=== PATIENT | female | born 1995 | race Caucasian/White ===

== ENCOUNTER 2017-07-23 17:09 | Emergency (ER) | payer OTHER ==
[2017-07-23 17:14] VITALS: RESP 18
--- NOTE | 2017-07-23 17:20 | ED ---
Nausea/Vomiting/Diarrhea HPI - General Chief complaint: Nausea/Vomiting/Diarrhea Stated complaint: Abd Pain/Nausea Time Seen by Provider: 07/23/17 17:19 Source: patient, RN notes reviewed Mode of arrival: ambulatory Limitations: no limitations - History of Present Illness Initial comments: This a pleasant 22-year-old female presents MRSA by complaining of nausea. Patient states that she is late on her menstrual period believe she is . Patient took an outpatient test and it was negative. Patient denies pain. Denies fever. Denies problems with bowel movements or urination. No vomiting. No shortness of breath or chest pain. MD complaint: nausea - Related Data Home Medications Medication Instructions Recorded Confirmed Amoxicillin 500 mg PO Q8H 12/23/14 12/23/14 Promethazine 6.25MG/5Ml [Phenergan 5 ml PO QID 12/23/14 12/23/14 Syrup] Sulfamethoxazole/Trimethoprim 1 each PO Q12H 12/23/14 12/23/14 [Bactrim DS 800-160 mg] traZODone HCL [Desyrel] 50 mg PO HS 12/23/14 12/23/14 Previous Rx's Medication Instructions Recorded Albuterol Nebulized [Ventolin 2.5 mg INHALATION Q4H PRN #2 box 12/23/14 Nebulized] Benzonatate [Tessalon Perles] 100 mg PO TID PRN #30 capsule 12/23/14 predniSONE 50 mg PO DAILY #5 tab 12/23/14 Allergies Allergy/AdvReac Type Severity Reaction Status Date / Time No Known Allergies Allergy Verified 07/23/17 17:13 Review of Systems ROS Statement: Those systems with pertinent positive or pertinent negative responses have been documented in the HPI. ROS Other: All systems not noted in ROS Statement are negative. Past Medical History Past Medical History: Asthma History of Any Multi-Drug Resistant Organisms: None Reported Past Surgical History: No Surgical Hx Reported Past Psychological History: No Psychological Hx Reported, Anxiety, Depression Smoking Status: Never smoker Past Alcohol Use History: None Reported Past Drug Use History: None Reported General Exam - General Exam Comments Initial Comments: Female in no acute distress. Limitations: no limitations General appearance: alert, in no apparent distress Head exam: Present: atraumatic, normocephalic, normal inspection Eye exam: Present: normal appearance, PERRL, EOMI. Absent: scleral icterus, conjunctival injection, periorbital swelling ENT exam: Present: normal exam, mucous membranes moist Neck exam: Present: normal inspection. Absent: tenderness, meningismus, lymphadenopathy Respiratory exam: Present: normal lung sounds bilaterally. Absent: respiratory distress, wheezes, rales, rhonchi, stridor Cardiovascular Exam: Present: regular rate, normal rhythm, normal heart sounds. Absent: systolic murmur, diastolic murmur, rubs, gallop, clicks GI/Abdominal exam: Present: soft, tenderness (Right upper quadrant tenderness to palpation--very mild), normal bowel sounds. Absent: distended, guarding, rebound, rigid Extremities exam: Present: normal inspection, full ROM, normal capillary refill. Absent: tenderness, pedal edema, joint swelling, calf tenderness Back exam: Present: normal inspection Neurological exam: Present: alert, oriented X3, CN II-XII intact Psychiatric exam: Present: normal affect, normal mood Skin exam: Present: warm, dry, intact, normal color. Absent: rash Course Vital Signs 07/23/17 17:10 Temperature 96.9 F L Pulse Rate 97 Respiratory 18 Rate Blood Pressure 130/82 O2 Sat by Pulse 97 Oximetry Medical Decision Making - Medical Decision Making Patient reevaluated is resting comfortably in bed. Patient's abdominal examination is essentially benign., Soft, no tenderness Return and follow-up parameters discussed - Lab Data Result diagrams: 07/23/17 17:57 07/23/17 17:57 Lab Results 07/23/17 07/23/17 07/23/17 Range/Units 17:15 17:15 17:57 WBC 11.3 H (3.8-10.6) k/uL RBC 5.12 (3.80-5.40) m/uL Hgb 15.3 (11.4-16.0) gm/dL Hct 46.0 (34.0-46.0) % MCV 89.9 (80.0-100.0) fL MCH 29.8 (25.0-35.0) pg MCHC 33.2 (31.0-37.0) g/dL RDW 14.2 (11.5-15.5) % Plt Count 378 (150-450) k/uL Neutrophils % 61 % Lymphocytes % 28 % Monocytes % 6 % Eosinophils % 2 % Basophils % 1 % Neutrophils # 7.0 (1.3-7.7) k/uL Lymphocytes # 3.1 (1.0-4.8) k/uL Monocytes # 0.6 (0-1.0) k/uL Eosinophils # 0.2 (0-0.7) k/uL Basophils # 0.1 (0-0.2) k/uL Sodium (137-145) mmol/L Potassium (3.5-5.1) mmol/L Chloride (98-107) mmol/L Carbon Dioxide (22-30) mmol/L Anion Gap mmol/L BUN (7-17) mg/dL Creatinine (0.52-1.04) mg/dL Est GFR (MDRD) Af Amer (>60 ml/min/1.73 sqM) Est GFR (MDRD) Non-Af (>60 ml/min/1.73 sqM) Glucose (74-99) mg/dL Calcium (8.4-10.2) mg/dL Total Bilirubin (0.2-1.3) mg/dL AST (14-36) U/L ALT (9-52) U/L Alkaline Phosphatase (38-126) U/L Total Protein (6.3-8.2) g/dL Albumin (3.5-5.0) g/dL Lipase (23-300) U/L Urine Color Yellow Urine Appearance Cloudy H (Clear) Urine pH 7.0 (5.0-8.0) Ur Specific [place] 1.013 (1.001-1.035) Urine Protein Negative (Negative) Urine Glucose (UA) Negative (Negative) Urine Ketones Negative (Negative) Urine Blood Negative (Negative) Urine Nitrite Negative (Negative) Urine Bilirubin Negative (Negative) Urine Urobilinogen <2.0 (<2.0) mg/dL Ur Leukocyte Esterase Moderate H (Negative) Urine WBC 4 (0-5) /hpf Ur Squamous Epith Cells 5 H (0-4) /hpf Urine Bacteria Occasional H (None) /hpf Urine Mucus Rare H (None) /hpf Urine HCG, Qual Not Detected (Not Detectd) 07/23/17 Range/Units 17:57 WBC (3.8-10.6) k/uL RBC (3.80-5.40) m/uL Hgb (11.4-16.0) gm/dL Hct (34.0-46.0) % MCV (80.0-100.0) fL MCH (25.0-35.0) pg MCHC (31.0-37.0) g/dL RDW (11.5-15.5) % Plt Count (150-450) k/uL Neutrophils % % Lymphocytes % % Monocytes % % Eosinophils % % Basophils % % Neutrophils # (1.3-7.7) k/uL Lymphocytes # (1.0-4.8) k/uL Monocytes # (0-1.0) k/uL Eosinophils # (0-0.7) k/uL Basophils # (0-0.2) k/uL Sodium 142 (137-145) mmol/L Potassium 4.8 (3.5-5.1) mmol/L Chloride 108 H (98-107) mmol/L Carbon Dioxide 19 L (22-30) mmol/L Anion Gap 15 mmol/L BUN 10 (7-17) mg/dL Creatinine 0.71 (0.52-1.04) mg/dL Est GFR (MDRD) Af Amer >60 (>60 ml/min/1.73 sqM) Est GFR (MDRD) Non-Af >60 (>60 ml/min/1.73 sqM) Glucose 73 L (74-99) mg/dL Calcium 10.0 (8.4-10.2) mg/dL Total Bilirubin 0.6 (0.2-1.3) mg/dL AST 43 H (14-36) U/L ALT 50 (9-52) U/L Alkaline Phosphatase 103 (38-126) U/L Total Protein 8.2 (6.3-8.2) g/dL Albumin 4.8 (3.5-5.0) g/dL Lipase 71 (23-300) U/L Urine Color Urine Appearance (Clear) Urine pH (5.0-8.0) Ur Specific [place] (1.001-1.035) Urine Protein (Negative) Urine Glucose (UA) (Negative) Urine Ketones (Negative) Urine Blood (Negative) Urine Nitrite (Negative) Urine Bilirubin (Negative) Urine Urobilinogen (<2.0) mg/dL Ur Leukocyte Esterase (Negative) Urine WBC (0-5) /hpf Ur Squamous Epith Cells (0-4) /hpf Urine Bacteria (None) /hpf Urine Mucus (None) /hpf Urine HCG, Qual (Not Detectd) Disposition Clinical Impression: Nausea Disposition: HOME SELF-CARE Condition: Good Additional Instructions: History of call the morning and make an appointment with your regular physician.Return to the ER at once if the symptoms worsen or problems or difficulties arise. Referrals: Alex Samayoa MD [Primary Care Provider] - 1-2 days Time of Disposition: 19:18
[2017-07-23] MEDS ORDERED: SODIUM CHLORIDE 0.9% 500 ML IV STA (17:36)
[2017-07-23] MEDS ORDERED: ONDANSETRON 4 MG/2 ML VIAL IVP STA (17:36)
[2017-07-23 17:39] LABS: Appearance,Urine Cloudy (Clear); Bacteria,Urine Occasional /hpf; Bilirubin,Urine Negative (Negative); Glucose,Urine (UA) Negative (Negative); Ketones,Urine Negative (Negative); Leukocyte Esterase,Urine Moderate (Negative); Mucus,Urine Rare /hpf; Nitrite,Urine Negative (Negative); Particle Count 3113; Protein,Urine Negative (Negative); Specific Gravity,Urine 1.013 (1.001-1.035); Squamous Epithelial Cell,Urine 5 /hpf (0-4); UA Billing (MACRO vs. MICRO) MICRO; Urobilinogen,Urine <2.0 mg/dL (<2.0); WBC,Urine 4 /hpf (0-5)
[2017-07-23 18:12] LABS: Basophils # (A) 0.1 k/uL (0-0.2); Basophils % (A) 1 %; CH 30.4; CHCM 33.9; Eosinophils # (A) 0.2 k/uL (0-0.7); Eosinophils % (A) 2 %; HDW 2.41; HGB 15.3 gm/dL (11.4-16.0); Luc # (Auto) 0.29; Luc % (Auto) 3; Lymphocytes # (A) 3.1 k/uL (1.0-4.8); Lymphocytes % (A) 28 %; MCH 29.8 pg (25.0-35.0); MCHC 33.2 g/dL (31.0-37.0); MCV 89.9 fL (80.0-100.0); Mean Platelet Volume 7.8; Monocytes # (A) 0.6 k/uL (0-1.0); Monocytes % (A) 6 %; Neutrophils % (A) 61 %; RBC 5.12 m/uL (3.80-5.40); RDW 14.2 % (11.5-15.5); WBC 11.3 k/uL (3.8-10.6); WBC (Perox) 11.54
[2017-07-23 18:23] LABS: ALT 50 U/L (9-52); AST 43 U/L (14-36); Alkaline Phosphatase 103 U/L (38-126); Anion Gap 15 mmol/L; Blood Urea Nitrogen 10 mg/dL (7-17); Carbon Dioxide 19 mmol/L (22-30); Chloride 108 mmol/L (98-107); Glucose 73 mg/dL (74-99); Non-African American GFR(MDRD) >60 (>60 ml/min/1.73 sqM); Potassium 4.8 mmol/L (3.5-5.1); Sodium 142 mmol/L (137-145); Total Bilirubin 0.6 mg/dL (0.2-1.3); Total Protein 8.2 g/dL (6.3-8.2)
--- NOTE | 2017-07-23 19:11 | US ---
EXAMINATION TYPE: US gallbladder DATE OF EXAM: 07/23/2017 COMPARISON: NONE CLINICAL HISTORY: Pain. Nausea EXAM MEASUREMENTS: Liver Length: 16.6 cm Gallbladder Wall: 0.27 cm CBD: 0.38 cm Right Kidney: 9.9 x 4.3 x 4.2 cm Pancreas: Obscured by bowel gas Liver: Increased attenuation Gallbladder: wnl Evidence for sonographic Parker's sign: No CBD: wnl Right Kidney: No hydronephrosis or masses seen IMPRESSION: Negative right upper quadrant abdominal sonogram. No gallstones or dilated ducts.
[2017-07-23 19:27] VITALS: BP 125/87; PULSE 87; TEMP 98.7
== END 2017-07-23 19:27 | disposition home or self-care (01) ==
LOC: EC 17:09
DX: R11.0 Nausea (principal); R10.811 Right upper quadrant abdominal tenderness; F32.9 Major depressive disorder, single episode, unspecified; F41.9 Anxiety disorder, unspecified; Z79.899 Other long term (current) drug therapy
CPT/HCPCS: 36415; 80053; 83690; 85025; 81001; 81025; 76705; 99284; 96374; 96361; J2405

== ENCOUNTER → 2018-03-19 | Outpatient (CLI) | payer OTHER ==
--- NOTE | 2018-03-19 15:56 | US ---
EXAMINATION TYPE: Transabdominal DATE OF EXAM: 02/09/18 COMPARISON: NONE CLINICAL HISTORY: Z34.01 encounter for supervision normal 1st. cramping EXAM PERFORMED: OBTA EXAM MEASUREMENTS: GESTATIONAL AGE / DATING Physician Established: (13 weeks/3 days) EDC: 09/21/2018 Dates by LMP: LMP unknown Dates by First Scan: TIMBER SELECTOR Dates by Current Scan for: (13 weeks/2 days) EDC: 09/22/2018 MATERNAL ANATOMY Uterus: 13.9 x 8.5 x 6.4 Right Ovary: 3.3 x 2.5 x 2.3 Left Ovary: not seen Post CDS / Adnexa: wnl Presence of free fluid: no Presence of corpus luteal cyst: not seen Presence of subchorionic bleed: no GESTATION / SURVEY CRL: 7.1 (13 weeks/2 days) MSD: wnl Yolk Sac (normal less than 6mm): not seen Heart Rate: 157 bpm Rhythm: Normal IUP: Viable IUP Date of LMP: unknown Beta HcG (if available): not available IMPRESSION: Single viable intrauterine .
== END | disposition home or self-care (01) ==
LOC: RADUSWWP 14:30
PROVIDERS: ATTEND Obstetrics & Gynecology
DX: Z34.01 Encounter for supervision of normal first pregnancy, first trimester (principal)
CPT/HCPCS: 76801

== ENCOUNTER → 2018-05-07 | Outpatient (CLI) | payer OTHER ==
--- NOTE | 2018-05-08 09:06 | US ---
EXAMINATION TYPE: US OB anatomy transabd DATE OF EXAM: 05/07/2018 COMPARISON: HISTORY: Z34.02 Encounter for supervision Anatomy TECHNIQUE: Transabdominal (TA) EXAM MEASUREMENTS: GESTATIONAL AGE / DATING Physician Established: (20 weeks/4 days) EDC: 09/20/2018 Dates by Current Scan for: (20 weeks/4 days) EDC: 09/20/2018 SURVEY IUP: Single PLACENTA: Posterior PREVIA: No previa HILARIA: 13.8 cm Normal CERVICAL LENGTH (transabdominal: norm > 3.0cm): 3.3 cm BIOMETRY PRESENTATION: Vertex LIE: Oblique BPD: 4.7 cm 20 weeks / 2 days HC: 17.9 cm 20 weeks / 3 days AC: 15.9 cm 21 weeks / 1 days FL: 3.3 cm 20 weeks / 3 days ESTIMATED WEIGHT IN GRAMS: 368 grams ESTIMATED WEIGHT IN LBS/OZ: 0 lbs. 13 oz. WEIGHT PERCENTAGE BASED ON ESTABLISHED DATE: 49 % HC/AC: 1.1 Normal FL/AC: 21% HEART RATE: 138 bpm RHYTHM: Normal ANATOMY SEEN (within normal limits): * Lateral Vent (< 1 cm) 0.5 cm * Cisterna Magna (< 1.1 cm) 0.4 cm * Nuchal Fold (< 0.6 cm) 0.4 cm * Cerebellum (varies with age) 2.1 cm Choroid Plexus (bilateral) Midline Falx Cavus Septi Pellucidi Outflow tracts: RVOT Stomach Situs Nose / Lips Diaphragm Kidneys (bilateral) Bladder Cord Insert Three Vessel Cord Longitudinal Spine Transverse Spine Arms (bilateral) Legs (bilateral) ANATOMY SEEN (does not appear within normal limits): LVOT & 4 Chamber Heart- EIF seen in left ventricle MATERNAL WALL MEASUREMENT: 3.5 cm from skin to anterior uterine wall (if exam limited due to body velasco bitus). Limited exam due to patient body habitus Single live IUP measuring 20 weeks 4 days. EIF seen in left ventricle. IMPRESSION: Limited exam. Single viable intrauterine corresponding to an ultrasound age of 20 weeks 4 d ays with estimated delivery date 09/20/2018. Echogenic intracardiac focus noted incidentally.
== END | disposition home or self-care (01) ==
LOC: RADUSWWP 14:38
PROVIDERS: ATTEND Obstetrics & Gynecology
DX: Z34.02 Encounter for supervision of normal first pregnancy, second trimester (principal); Z3A.20 20 weeks gestation of pregnancy
CPT/HCPCS: 76811

== ENCOUNTER → 2018-05-28 | Outpatient (CLI) | payer OTHER ==
--- NOTE | 2018-05-31 09:43 | US ---
EXAMINATION TYPE: US OB Call Back DATE OF EXAM: 05/28/2018 COMPARISON: 05/07/2018 CLINICAL HISTORY: 22-year-old female Z34.02 Encounter for supervision of normal first. follow-up for incomplete anatomy survey FINDINGS: OB GYN NOTES: Exam is technically limited due to large body habitus. GESTATIONAL AGE / DATING Dates by Initial Survey Scan: (20 weeks/4 days) EDC: 09/20/2018 HEART RATE: 155 bpm RHYTHM: Normal ANATOMY SEEN (second anatomic survey look): - Four Chamber Heart: ANATOMY SUBOPTIMALLY VISUALIZED: - Outflow tracts:? LVOT - A couple images redemonstrate findings which may represent echogenic intracardiac focus. This is no t seen on the normal 4 chamber view. IMPRESSION: 1. LVOT remains suboptimal. An additional rescan can be attempted if desired free of charge. 2. A couple images redemonstrate what may represent an echogenic intracardiac focus. However, the son ographer does not report on seeing this finding. This can also be reassessed on the rescan.
== END | disposition home or self-care (01) ==
LOC: RADUSWWP 15:15
PROVIDERS: ATTEND Obstetrics & Gynecology
DX: Z53.9 Procedure and treatment not carried out, unspecified reason (principal)

== ENCOUNTER → 2018-09-10 | Outpatient (CLI) | payer OTHER ==
--- NOTE | 2018-09-10 15:56 | US ---
EXAMINATION TYPE: US OB >= 14 wk fetus DATE OF EXAM: 09/10/2018 COMPARISON: US 2018 CLINICAL HISTORY: O99.213 Obesity Complicating PregnancyThird trimester, for growth TECHNIQUE: Transabdominal (TA) GESTATIONAL AGE / DATING Physician Established: (38 weeks/4 days) EDC: 09/20/2018 Dates by LMP: Unknown Dates by First Scan: (38 weeks/2 days) EDC: 09/22/2018 Dates by Current Scan: (37 weeks/5 days) EDC: 09/26/2018 SURVEY IUP: Single PLACENTA: Posterior, very limited visualization due to patient body habitus HILARIA: 12.8 cm Normal CERVICAL LENGTH (transabdominal: norm > 3.0cm): not visualized due to position and patient body habitus BIOMETRY PRESENTATION: Vertex BPD: 9.2 cm 37 weeks / 3 days HC: 32.9 cm 37 weeks / 3 days AC: 33.3 cm 37 weeks / 2 days FL: 7.5 cm 38 weeks / 3 days ESTIMATED WEIGHT IN GRAMS: 3235 grams ESTIMATED WEIGHT IN LBS/OZ: 7 lbs. 2 oz. WEIGHT PERCENTAGE BASED ON ESTABLISHED DATES: 39% HC/AC: 0.99 Normal FL/AC: 23% Normal HEART RATE: 132 bpm RHYTHM: Normal MATERNAL WALL MEASUREMENT: 5.7 cm from skin to anterior uterine wall (if exam limited due to body hab itus). Difficult and limited study due to patient body habitus. Follow-up small parts are not comple tely evaluated during this exam. Viable single IUP measuring 37 weeks 5 days with a heart rate of 132bpm and an estimated delivery robert e of 09/26/2018. IMPRESSION: 1. Single intrauterine gestation estimated at 37 weeks 5 days gestation. Cardiac activity measures 13 2 bpm.
== END | disposition home or self-care (01) ==
LOC: RADUSWWP 14:56
PROVIDERS: ATTEND Obstetrics & Gynecology
DX: O99.213 Obesity complicating pregnancy, third trimester (principal); Z3A.37 37 weeks gestation of pregnancy
CPT/HCPCS: 76805

== ENCOUNTER 2018-11-11 20:36 | Inpatient (IN) | payer OTHER ==
[2018-11-11] MEDS ORDERED: ONDANSETRON 4 MG/2 ML VIAL IVP STA (21:12)
[2018-11-11] MEDS ORDERED: SODIUM CHLORIDE 0.9% 1,000 ML IV STA (21:14)
--- NOTE | 2018-11-11 21:16 | ED ---
General Adult HPI - General Chief complaint: Chest Pain Stated complaint: chest pain Time Seen by Provider: 11/11/18 21:14 Source: EMS Mode of arrival: EMS Limitations: no limitations - History of Present Illness Initial comments: Champ is a previously healthy morbidly obese 23-year-old female presents to the ED today via EMS for evaluation of sudden onset of epigastric and retrosternal pressure-like discomfort. Patient reports that she didn't have much of an appetite today, a couple of hours prior to arrival she did eat a couple of sandwiches. She subsequently developed a pressure-like pain in her epigastrium , she called 911. In route to the hospital she was given aspirin and nitro with no pain in her discomfort. Upon arrival she had an episode of nonbloody nonbilious emesis and reports that she feels somewhat relieved after vomiting. Patient denies any recent fevers, chills or any shortness of breath or difficulty breathing. Patient denies any history of any GI pathology, she has no history of gallstones or pancreatitis, no history of irritable or inflammatory bowel disease. She denies any recent alcohol intake or history of pancreatitis. - Related Data Home Medications Medication Instructions Recorded Confirmed Ibuprofen [Motrin Ib] 400 mg PO Q6HR PRN 11/11/18 11/11/18 Allergies Allergy/AdvReac Type Severity Reaction Status Date / Time No Known Allergies Allergy Verified 11/11/18 20:59 Review of Systems ROS Statement: Those systems with pertinent positive or pertinent negative responses have been documented in the HPI. ROS Other: All systems not noted in ROS Statement are negative. Past Medical History Past Medical History: Asthma History of Any Multi-Drug Resistant Organisms: None Reported Past Surgical History: No Surgical Hx Reported Past Psychological History: No Psychological Hx Reported, Anxiety, Depression Smoking Status: Never smoker Past Alcohol Use History: None Reported Past Drug Use History: None Reported General Exam - General Exam Comments Initial Comments: Physical Exam GENERAL: Appears uncomfortable HENT: Normocephalic, Atraumatic. EYES: PERRL, EOMI PULMONARY: Unlabored respirations. No audible rales rhonchi or wheezing was noted. CARDIOVASCULAR: There is a regular rate and rhythm without any murmurs gallops or rubs. ABDOMEN: Soft, normal active bowel sounds, mild tenderness to palpation in the epigastrium SKIN: Skin is clear with no lesions or rashes and otherwise unremarkable. : Deferred NEUROLOGIC: Patient is alert and oriented x3. Moving all extremities spontaneously MUSCULOSKELETAL: Normal extremities with adequate strength and full range of motion. No lower extremity swelling or edema. No calf tenderness. PSYCHIATRIC: Normal psychiatric evaluation. Limitations: no limitations Limitations: no limitations Course Vital Signs 11/11/18 11/11/18 11/12/18 20:42 23:23 00:21 Temperature 98.4 F 98.6 F Pulse Rate 74 98 98 Respiratory 18 16 16 Rate Blood Pressure 96/63 149/100 170/106 O2 Sat by Pulse 96 98 98 Oximetry EKG Findings - EKG Comments: EKG Findings:: EKG obtained at 2042, rate is 78, rhythm is sinus with sinus arrhythmia. Normal axis, normal intervals, NH 128, QRS 88, QTC is 462. There is no acute ST elevations or depressions no evidence of acute ischemia or infarction. Medical Decision Making - Medical Decision Making The patient was seen and evaluated, history is obtained from the patient and review of medical record Patient presented via EMS for evaluation of sudden onset of epigastric and chest discomfort which was relieved somewhat with vomiting Labs and imaging ordered Zofran and Pepcid ordered Labs and imaging were ordered Labs are suggestive of acute pancreatitis with elevated amylase and lipase as well as mildly elevated transaminases I find patient was updated on these findings, additional IV fluids were ordered, patient with persistent nausea but reports significant improvement in her discomfort and she has began vomiting. Ultrasound was ordered to evaluate gallbladder She with persistent nausea and vomiting, additional antiemetics ordered Ultrasound with no obvious gallstones Admission orders were placed - Lab Data Result diagrams: 11/11/18 20:48 11/11/18 20:48 Lab Results 11/11/18 11/11/18 11/11/18 Range/Units 20:48 20:48 20:48 WBC 11.2 H (3.8-10.6) k/uL RBC 4.72 (3.80-5.40) m/uL Hgb 12.7 (11.4-16.0) gm/dL Hct 40.7 (34.0-46.0) % MCV 86.1 (80.0-100.0) fL MCH 26.8 (25.0-35.0) pg MCHC 31.1 (31.0-37.0) g/dL RDW 14.3 (11.5-15.5) % Plt Count 446 (150-450) k/uL Neutrophils % 74 % Lymphocytes % 17 % Monocytes % 5 % Eosinophils % 1 % Basophils % 0 % Neutrophils # 8.2 H (1.3-7.7) k/uL Lymphocytes # 1.9 (1.0-4.8) k/uL Monocytes # 0.6 (0-1.0) k/uL Eosinophils # 0.1 (0-0.7) k/uL Basophils # 0.1 (0-0.2) k/uL Sodium 140 (137-145) mmol/L Potassium 4.2 (3.5-5.1) mmol/L Chloride 110 H (98-107) mmol/L Carbon Dioxide 20 L (22-30) mmol/L Anion Gap 10 mmol/L BUN 10 (7-17) mg/dL Creatinine 0.66 (0.52-1.04) mg/dL Est GFR (CKD-EPI)AfAm >90 (>60 ml/min/1.73 sqM) Est GFR (CKD-EPI)NonAf >90 (>60 ml/min/1.73 sqM) Glucose 125 H (74-99) mg/dL Calcium 9.9 (8.4-10.2) mg/dL Total Bilirubin 3.8 H (0.2-1.3) mg/dL AST 679 H (14-36) U/L ALT 821 H (9-52) U/L Alkaline Phosphatase 210 H (38-126) U/L Total Creatine Kinase 109 (30-135) U/L CK-MB (CK-2) 0.8 (0.0-2.4) ng/mL CK-MB (CK-2) Rel Index 0.7 Troponin I <0.012 (0.000-0.034) ng/mL Total Protein 7.1 (6.3-8.2) g/dL Albumin 4.0 (3.5-5.0) g/dL Amylase 1174 H* (30-110) U/L Lipase >75111 H (23-300) U/L Urine Color Urine Appearance (Clear) Urine pH (5.0-8.0) Ur Specific [place] (1.001-1.035) Urine Protein (Negative) Urine Glucose (UA) (Negative) Urine Ketones (Negative) Urine Blood (Negative) Urine Nitrite (Negative) Urine Bilirubin (Negative) Urine Urobilinogen (<2.0) mg/dL Ur Leukocyte Esterase (Negative) Urine RBC (0-5) /hpf Urine WBC (0-5) /hpf Ur Squamous Epith Cells (0-4) /hpf Urine Mucus (None) /hpf Urine Sperm (None) /hpf Urine HCG, Qual (Not Detectd) 11/11/18 11/11/18 Range/Units 22:26 22:26 WBC (3.8-10.6) k/uL RBC (3.80-5.40) m/uL Hgb (11.4-16.0) gm/dL Hct (34.0-46.0) % MCV (80.0-100.0) fL MCH (25.0-35.0) pg MCHC (31.0-37.0) g/dL RDW (11.5-15.5) % Plt Count (150-450) k/uL Neutrophils % % Lymphocytes % % Monocytes % % Eosinophils % % Basophils % % Neutrophils # (1.3-7.7) k/uL Lymphocytes # (1.0-4.8) k/uL Monocytes # (0-1.0) k/uL Eosinophils # (0-0.7) k/uL Basophils # (0-0.2) k/uL Sodium (137-145) mmol/L Potassium (3.5-5.1) mmol/L Chloride (98-107) mmol/L Carbon Dioxide (22-30) mmol/L Anion Gap mmol/L BUN (7-17) mg/dL Creatinine (0.52-1.04) mg/dL Est GFR (CKD-EPI)AfAm (>60 ml/min/1.73 sqM) Est GFR (CKD-EPI)NonAf (>60 ml/min/1.73 sqM) Glucose (74-99) mg/dL Calcium (8.4-10.2) mg/dL Total Bilirubin (0.2-1.3) mg/dL AST (14-36) U/L ALT (9-52) U/L Alkaline Phosphatase (38-126) U/L Total Creatine Kinase (30-135) U/L CK-MB (CK-2) (0.0-2.4) ng/mL CK-MB (CK-2) Rel Index Troponin I (0.000-0.034) ng/mL Total Protein (6.3-8.2) g/dL Albumin (3.5-5.0) g/dL Amylase (30-110) U/L Lipase (23-300) U/L Urine Color Dark Yellow Urine Appearance Cloudy H (Clear) Urine pH 5.0 (5.0-8.0) Ur Specific [place] 1.008 (1.001-1.035) Urine Protein Trace H (Negative) Urine Glucose (UA) Negative (Negative) Urine Ketones Negative (Negative) Urine Blood Small H (Negative) Urine Nitrite Negative (Negative) Urine Bilirubin 1+ H (Negative) Urine Urobilinogen 4.0 (<2.0) mg/dL Ur Leukocyte Esterase Moderate H (Negative) Urine RBC 4 (0-5) /hpf Urine WBC 26 H (0-5) /hpf Ur Squamous Epith Cells 12 H (0-4) /hpf Urine Mucus Rare H (None) /hpf Urine Sperm Rare (None) /hpf Urine HCG, Qual Not Detected (Not Detectd) Disposition Clinical Impression: Pancreatitis Disposition: ADMITTED IP TO THIS HOSP Referrals: Alex Samayoa MD [Primary Care Provider] - 1-2 days
[2018-11-11] MEDS ORDERED: FAMOTIDINE 20 MG/2 ML VIAL IV STA (21:30)
[2018-11-11 21:40] LABS: Basophils # (A) 0.1 k/uL (0-0.2); Basophils % (A) 0 %; Eosinophils # (A) 0.1 k/uL (0-0.7); Eosinophils % (A) 1 %; HCT 40.7 % (34.0-46.0); HGB 12.7 gm/dL (11.4-16.0); Lymphocytes # (A) 1.9 k/uL (1.0-4.8); Lymphocytes % (A) 17 %; MCH 26.8 pg (25.0-35.0); MCHC 31.1 g/dL (31.0-37.0); MCV 86.1 fL (80.0-100.0); Mean Platelet Volume 7.4; Monocytes # (A) 0.6 k/uL (0-1.0); Monocytes % (A) 5 %; Neutrophils # (A) 8.2 k/uL (1.3-7.7); Neutrophils % (A) 74 %; Platelet Count 446 k/uL (150-450); RBC 4.72 m/uL (3.80-5.40); RDW 14.3 % (11.5-15.5); WBC 11.2 k/uL (3.8-10.6)
[2018-11-11 21:47] LABS: ALT 821 U/L (9-52); AST 679 U/L (14-36); Alkaline Phosphatase 210 U/L (38-126); Anion Gap 10 mmol/L; Blood Urea Nitrogen 10 mg/dL (7-17); Calcium 9.9 mg/dL (8.4-10.2); Carbon Dioxide 20 mmol/L (22-30); Chloride 110 mmol/L (98-107); Glucose 125 mg/dL (74-99); Potassium 4.2 mmol/L (3.5-5.1); Sodium 140 mmol/L (137-145); Total Bilirubin 3.8 mg/dL (0.2-1.3); Total Protein 7.1 g/dL (6.3-8.2)
--- NOTE | 2018-11-11 21:59 | XR ---
EXAMINATION TYPE: XR KUB DATE OF EXAM: 11/11/2018 COMPARISON: 03/02/2013 HISTORY: Substernal epigastric pain TECHNIQUE: 2 views upright FINDINGS: There is no sign of intestinal obstruction or pneumoperitoneum. Fecal pattern is normal. Th ere are no pathologic calcifications over the kidneys. Lung bases are clear. There is no sign of a ma ss. Exam is limited by the patient's size. IMPRESSION: Nonacute abdomen.
[2018-11-11 22:05] LABS: Creatine Kinase 109 U/L (30-135)
[2018-11-11 22:13] LABS: Creatine Kinase MB 0.8 ng/mL (0.0-2.4); Troponin I <0.012 ng/mL (0.000-0.034)
[2018-11-11 22:16] LABS: Lipase >20000 U/L (23-300)
[2018-11-11 22:19] LABS: Amylase 1174 U/L (30-110)
[2018-11-11 22:39] LABS: Appearance,Urine Cloudy (Clear); Bilirubin,Urine 1+ (Negative); Blood,Urine Small (Negative); Color,Urine Dark Yellow; Glucose,Urine (UA) Negative (Negative); Ketones,Urine Negative (Negative); Leukocyte Esterase,Urine Moderate (Negative); Mucus,Urine Rare /hpf; Nitrite,Urine Negative (Negative); Protein,Urine Trace (Negative); RBC,Urine 4 /hpf (0-5); Specific Gravity,Urine 1.008 (1.001-1.035); Sperm,Urine Rare /hpf; Squamous Epithelial Cell,Urine 12 /hpf (0-4); WBC,Urine 26 /hpf (0-5)
[2018-11-11] MEDS ORDERED: MORPHINE SULFATE 4 MG/ML SYRINGE IVP STA (22:41)
[2018-11-11] MEDS ORDERED: SODIUM CHLORIDE 0.9% 2,000 ML IV ONE (22:42)
[2018-11-11] MEDS ORDERED: SODIUM CHLORIDE 0.9% 1,000 ML IV SCH (22:45)
[2018-11-11] MEDS ORDERED: diphenhydrAMINE 50 MG/ML 1 ML VIAL IVP STA (23:28)
[2018-11-11] MEDS ORDERED: METOCLOPRAMIDE 5 MG/ML 2 ML VIAL IVP STA (23:28)
[2018-11-11] MEDS ORDERED: NALOXONE 0.4 MG/ML 1 ML VIAL IV PRN (23:53)
[2018-11-11] MEDS ORDERED: ONDANSETRON 4 MG/2 ML VIAL IVP PRN (23:53)
--- NOTE | 2018-11-12 00:10 | US ---
EXAMINATION TYPE: US gallbladder DATE OF EXAM: 11/11/2018 COMPARISON: NONE CLINICAL HISTORY: pancreatitis. Pain and vomiting. Exam limitations due to body habitus. EXAM MEASUREMENTS: Liver Length: 18.6 cm Gallbladder Wall: 0.2 cm CBD: 0.5 cm Right Kidney: 11.0 x 4.0 x 4.5 cm Pancreas: Obscured by bowel gas Liver: Increased attenuation Gallbladder: wnl Evidence for sonographic Parker's sign: No CBD: wnl Right Kidney: wnl IMPRESSION: No gallstones or dilated ducts. There is probably fatty infiltration of the liver.
[2018-11-12 02:04] VITALS: BMI 47.5
[2018-11-12] MEDS: SODIUM CHLORIDE 0.9% 1,000 ML IV SCH ×5 (02:38→21:03)
[2018-11-12] MEDS: MORPHINE SULFATE 4 MG/ML SYRINGE IV PRN ×6 (04:09→23:17)
[2018-11-12] MEDS: PANTOPRAZOLE 40 MG/10 ML VIAL IV SCH (07:34)
[2018-11-12 08:25] LABS: Basophils % (A) 0 %; Eosinophils # (A) 0.1 k/uL (0-0.7); Eosinophils % (A) 0 %; HCT 40.9 % (34.0-46.0); HGB 12.9 gm/dL (11.4-16.0); Lymphocytes # (A) 0.9 k/uL (1.0-4.8); Lymphocytes % (A) 7 %; MCH 27.5 pg (25.0-35.0); MCHC 31.7 g/dL (31.0-37.0); MCV 86.8 fL (80.0-100.0); Mean Platelet Volume 6.8; Monocytes # (A) 0.4 k/uL (0-1.0); Monocytes % (A) 4 %; Neutrophils # (A) 11.1 k/uL (1.3-7.7); Neutrophils % (A) 88 %; Platelet Count 366 k/uL (150-450); RBC 4.71 m/uL (3.80-5.40); RDW 14.3 % (11.5-15.5); WBC 12.6 k/uL (3.8-10.6)
[2018-11-12 08:57] LABS: ALT 810 U/L (9-52); AST 589 U/L (14-36); Albumin 3.9 g/dL (3.5-5.0); Alkaline Phosphatase 201 U/L (38-126); Anion Gap 12 mmol/L; Blood Urea Nitrogen 6 mg/dL (7-17); Calcium 9.2 mg/dL (8.4-10.2); Carbon Dioxide 22 mmol/L (22-30); Chloride 110 mmol/L (98-107); Cholesterol 167 mg/dL (<200); Glucose 114 mg/dL (74-99); HDL Cholesterol 48 mg/dL (40-60); LDL Cholesterol,Calculated 110 mg/dL (0-99); Potassium 4.5 mmol/L (3.5-5.1); Sodium 144 mmol/L (137-145); Total Bilirubin 1.7 mg/dL (0.2-1.3); Total Protein 6.9 g/dL (6.3-8.2); Triglycerides 46 mg/dL (<150)
[2018-11-12 09:31] LABS: Lipase 5591 U/L (23-300)
[2018-11-12 09:32] LABS: Amylase 356 U/L (30-110)
[2018-11-12] MEDS ORDERED: IPRATROPIUM-ALBUTEROL 3 ML NEB INHALATION PRN (10:21)
[2018-11-12] MEDS: ONDANSETRON 4 MG/2 ML VIAL IVP PRN ×2 (11:22→18:16)
[2018-11-12] MEDS: SYMBICORT 160-4.5 MCG INHALER INHALATION SCH ×2 (12:04→20:01)
[2018-11-12] MEDS: IPRATROPIUM-ALBUTEROL 3 ML NEB INHALATION SCH ×3 (12:04→20:01)
--- NOTE | 2018-11-12 18:03 | XR ---
EXAMINATION TYPE: XR chest 1V DATE OF EXAM: 11/12/2018 COMPARISON: 12/23/2014 HISTORY: Cough TECHNIQUE: Single frontal view of the chest is obtained. FINDINGS: There is no heart failure nor confluent pneumonic infiltrate. Costophrenic angles are chencho r. Bony thorax is intact. IMPRESSION: No cardiopulmonary disease. There is decreased inspiration compared to old exam.
--- NOTE | 2018-11-12 18:10 | CT ---
EXAMINATION TYPE: CT abdomen pelvis wo con DATE OF EXAM: 11/12/2018 COMPARISON: None HISTORY: Abdominal pain and nausea and vomiting. CT DLP: 1253.4 mGycm Automated exposure control for dose reduction was used. TECHNIQUE: Helical acquisition of images was performed from the lung bases through the pelvis. FINDINGS: There is some mild atelectasis at the lung bases. There is no pleural effusion. There is no pericardi al effusion. Liver shows no focal defect. Spleen appears normal. There is extensive fat stranding and fluid in the anterior pararenal space bilaterally and around the pancreas. Gallbladder appears normal. Bile ducts are not dilated. There is no adrenal mass. There is 2 mm calculus upper pole left kidney. There is a 4 mm calculus at the left ureteropelvic junction. There is 2 mm calculus anterior right kidney. There is very minimal ectasia of the left renal pelvis. There is no retroperitoneal adenopathy. There is small amount of fl uid in the pelvis. Bladder distends smoothly. There is no inguinal hernia. There is no evidence of fr ee air. There is no evidence of a bowel obstruction. There is no mesenteric adenopathy. The lumbar spine is i ntact. Bony pelvis appears intact. I see no intestinal wall thickening. IMPRESSION: EXTENSIVE RETROPERITONEAL FLUID PROBABLY DUE TO ACUTE PANCREATITIS. LEFT RENAL CALCULI WITH PARTIAL OBSTRUCTION OF THE LEFT KIDNEY WITH STONE AT THE LEFT URETEROPELVIC J UNCTION.
--- NOTE | 2018-11-12 19:37 | P.HPIM ---
History of Present Illness this is a pleasant 23 years old female with no significant past medical history who presents because of 1 day of epigastric pain. Patient sometimes referred to us chest pain and other times and abdominal pain, however on examination is in the substernal epigastric region, nonradiating, central feels like dull and achy. About 6 to/10 in severity. Associated with nausea vomiting every 2 hours her last bowel movement for about 2 days ago which is usual for her but she passing gases.on admission she has mild leukocytosis of 12.6 K. Hemoglobin stable at 12.9. Electrolytes and kidney creatinine are within normal limits.liver enzymes including bilirubin were high but they're trending down slowly.amylase and lipase were elevated however they are improving from more than 20,000 down to 5591 of lipase.urinalysis was suspicious for infection.patient denies dysuria or urgency however she noticed increased frequency even before coming to the hospital. Urine culture was sent and patient was started on ceftriaxone.NG tube was tried however patient could not tolerate it. CAT scan of the abdomen shows extensive retroperitoneal fluid probably due to acute pancreatitis and left renal calculi with partial obstruction of the left kidney with a stone and the left ureteropelvic junction. Chest x-ray was unremarkable. And gallbladder shows no gallstone. common bile duct is within normal limits.possible fatty infiltration of the liver Review of Systems CONSTITUTIONAL: No fever, no malaise, no fatigue. HEENT: No recent visual problems or hearing problems. Denied any sore throat. CARDIOVASCULAR: No orthopnea, PND, no palpitations, no syncope. PULMONARY: No shortness of breath, no cough, no hemoptysis. GASTROINTESTINAL: No diarrhea, no nausea, no vomiting, no abdominal pain. Normoactive bowel sounds. NEUROLOGICAL: No headaches, no weakness, no numbness. HEMATOLOGICAL: Denies any bleeding or petechiae. GENITOURINARY: Denies any burning micturition, frequency, or urgency. MUSCULOSKELETAL/RHEUMATOLOGICAL: Denies any joint pain, swelling, or any muscle pain. ENDOCRINE: Denies any polyuria or polydipsia. Past Medical History Past Medical History: Asthma History of Any Multi-Drug Resistant Organisms: None Reported Past Surgical History: No Surgical Hx Reported Past Psychological History: No Psychological Hx Reported, Anxiety, Depression Smoking Status: Never smoker Past Alcohol Use History: None Reported Past Drug Use History: None Reported - Past Family History Father Family Medical History: Diabetes Mellitus, Myocardial Infarction ([place]) Mother Family Medical History: No Reported History Medications and Allergies Home Medications Medication Instructions Recorded Confirmed Type Ibuprofen [Motrin Ib] 400 mg PO Q6HR PRN 11/11/18 11/11/18 History Allergies Allergy/AdvReac Type Severity Reaction Status Date / Time No Known Allergies Allergy Verified 11/11/18 20:59 Physical Exam Vitals: Vital Signs Temp Pulse Pulse Resp BP BP Pulse Ox 11/12/18 16:42 76 11/12/18 16:27 76 11/12/18 15:45 86 11/12/18 15:00 98.6 F 86 16 154/79 95 11/12/18 12:19 72 11/12/18 12:05 72 11/12/18 07:00 98.4 F 99 16 145/96 94 L 11/12/18 04:08 95 148/88 11/12/18 02:03 98.6 F 112 H 16 169/73 97 11/12/18 01:02 148/95 11/12/18 00:48 98 142/96 11/12/18 00:21 98.6 F 98 16 170/106 98 11/11/18 23:23 98 16 149/100 98 11/11/18 20:42 98.4 F 74 18 96/63 96 Intake and Output 11/12/18 11/12/18 11/12/18 06:59 14:59 22:59 Intake Total 600 Output Total 300 Balance 600 -300 Intake: Intake, IV Titration 600 Amount Sodium Chloride 0.9% 1, 600 000 ml @ 200 mls/hr IV . Q5H [facility] Rx#:[id number] Output: Emesis 300 Other: Voiding Method Toilet Toilet Diaper Diaper # Voids 2 Weight 117.934 kg GENERAL: The patient is alert and oriented x3, not in any acute distress. Well developed, well nourished. HEENT: Pupils are round and equally reacting to light. EOMI. No scleral icterus. No conjunctival pallor. Normocephalic, atraumatic. No pharyngeal erythema. No thyromegaly. CARDIOVASCULAR: S1 and S2 present. No murmurs, rubs, or gallops. PULMONARY: Chest is clear to auscultation, no wheezing or crackles. -ABDOMEN: Soft, epigastric tenderness with no guarding or rebound tenderness nondistended, normoactive bowel sounds. No palpable organomegaly. MUSCULOSKELETAL: No joint swelling or deformity. EXTREMITIES: No cyanosis, clubbing, or pedal edema. NEUROLOGICAL: Gross neurological examination did not reveal any focal deficits. SKIN: No rashes. Results CBC & Chem 7: 11/12/18 08:05 11/12/18 08:05 Labs: Abnormal Lab Results - Last 24 Hours (Table) 11/11/18 11/11/18 11/11/18 Range/Units 20:48 20:48 22:26 WBC 11.2 H (3.8-10.6) k/uL Neutrophils # 8.2 H (1.3-7.7) k/uL Lymphocytes # (1.0-4.8) k/uL Chloride 110 H (98-107) mmol/L Carbon Dioxide 20 L (22-30) mmol/L BUN (7-17) mg/dL Glucose 125 H (74-99) mg/dL Total Bilirubin 3.8 H (0.2-1.3) mg/dL AST 679 H (14-36) U/L ALT 821 H (9-52) U/L Alkaline Phosphatase 210 H (38-126) U/L LDL Cholesterol, Calc (0-99) mg/dL Amylase 1174 H* (30-110) U/L Lipase >53266 H (23-300) U/L Urine Appearance Cloudy H (Clear) Urine Protein Trace H (Negative) Urine Blood Small H (Negative) Urine Bilirubin 1+ H (Negative) Ur Leukocyte Esterase Moderate H (Negative) Urine WBC 26 H (0-5) /hpf Ur Squamous Epith Cells 12 H (0-4) /hpf Urine Mucus Rare H (None) /hpf 11/12/18 11/12/18 Range/Units 08:05 08:05 WBC 12.6 H (3.8-10.6) k/uL Neutrophils # 11.1 H (1.3-7.7) k/uL Lymphocytes # 0.9 L (1.0-4.8) k/uL Chloride 110 H (98-107) mmol/L Carbon Dioxide (22-30) mmol/L BUN 6 L (7-17) mg/dL Glucose 114 H (74-99) mg/dL Total Bilirubin 1.7 H (0.2-1.3) mg/dL AST 589 H (14-36) U/L ALT 810 H (9-52) U/L Alkaline Phosphatase 201 H (38-126) U/L LDL Cholesterol, Calc 110 H (0-99) mg/dL Amylase 356 H* (30-110) U/L Lipase 5591 H (23-300) U/L Urine Appearance (Clear) Urine Protein (Negative) Urine Blood (Negative) Urine Bilirubin (Negative) Ur Leukocyte Esterase (Negative) Urine WBC (0-5) /hpf Ur Squamous Epith Cells (0-4) /hpf Urine Mucus (None) /hpf Thrombosis Risk Factor Assmnt - Choose All That Apply Each Factor Represents 1 point: Obesity (BMI >25) Other Risk Factors: No Other congenital or acquired thrombophilia - If yes, enter type in comment: No Thrombosis Risk Factor Assessment Total Risk Factor Score: 1 Thrombosis Risk Factor Assessment Level: Low Risk Assessment and Plan Assessment: acute pancreatitis Continuous nausea and vomiting probably secondary to above Elevated liver enzymes, trending down Urinary tract infection dehydration Mild leukocytosis Bilateral renal stone Plan: this is a pleasant 23 years old female who presents with acute pancreatitis and elevated liver enzymes. Continue with IV fluid, nothing by mouth, pain management, call GI evaluation, we'll do imaging of the chest and abdomen.Labs and medication were reviewed.start ceftriaxone and sent for urine culture. Continue same treatment. Continue with symptomatic treatment. Resume home medication. Monitor lytes and vitals. DVT and GI prophylaxis. Further recommendations of the clinical course of the patient DVT prophylaxis: Subcutaneous heparin GI Prophylaxis: Protonix Prognosis is guarded
[2018-11-12] MEDS: HEPARIN SODIUM,PORCINE 5,000 UNIT/ML 1 ML VIAL SQ SCH (21:03)
[2018-11-13] MEDS: ONDANSETRON 4 MG/2 ML VIAL IVP PRN ×4 (00:15→20:20)
[2018-11-13] MEDS: SODIUM CHLORIDE 0.9% 1,000 ML IV SCH ×5 (01:25→21:21)
[2018-11-13] MEDS: MORPHINE SULFATE 4 MG/ML SYRINGE IV PRN ×3 (03:25→21:23)
[2018-11-13] MEDS: PANTOPRAZOLE 40 MG/10 ML VIAL IV SCH (07:37)
[2018-11-13] MEDS: SYMBICORT 160-4.5 MCG INHALER INHALATION SCH ×3 (08:52→20:46)
[2018-11-13] MEDS: IPRATROPIUM-ALBUTEROL 3 ML NEB INHALATION SCH ×5 (08:52→20:47)
[2018-11-13] MEDS ORDERED: MORPHINE SULFATE 4 MG/ML SYRINGE IVP STA (09:27)
[2018-11-13 09:38] LABS: Anion Gap 9 mmol/L; Blood Urea Nitrogen 6 mg/dL (7-17); Calcium 9.3 mg/dL (8.4-10.2); Carbon Dioxide 27 mmol/L (22-30); Chloride 104 mmol/L (98-107); Glucose 99 mg/dL (74-99); Lipase 1308 U/L (23-300); Potassium 3.9 mmol/L (3.5-5.1); Sodium 140 mmol/L (137-145)
[2018-11-13] MEDS: HEPARIN SODIUM,PORCINE 5,000 UNIT/ML 1 ML VIAL SQ SCH ×2 (10:08→21:20)
[2018-11-13 10:11] LABS: Basophils # (A) 0.1 k/uL (0-0.2); Basophils % (A) 0 %; Eosinophils % (A) 0 %; HGB 12.4 gm/dL (11.4-16.0); Lymphocytes # (A) 1.2 k/uL (1.0-4.8); Lymphocytes % (A) 5 %; MCH 26.6 pg (25.0-35.0); MCHC 30.3 g/dL (31.0-37.0); MCV 87.8 fL (80.0-100.0); Mean Platelet Volume 7.1; Monocytes % (A) 4 %; Neutrophils # (A) 20.6 k/uL (1.3-7.7); Neutrophils % (A) 89 %; Platelet Count 366 k/uL (150-450); RBC 4.66 m/uL (3.80-5.40); RDW 14.3 % (11.5-15.5)
[2018-11-13 12:41] LABS: ALT 687 U/L (9-52); AST 384 U/L (14-36); Albumin 3.7 g/dL (3.5-5.0); Alkaline Phosphatase 176 U/L (38-126); Amylase 162 U/L (30-110); Total Bilirubin 0.9 mg/dL (0.2-1.3); Total Protein 6.6 g/dL (6.3-8.2)
[2018-11-13] MEDS: MEROPENEM 1 GM in SODIUM CHLORIDE 0.9% 100 ML IVPB SCH (16:15)
--- NOTE | 2018-11-13 16:56 | P.PN ---
Subjective this is a pleasant 23 years old female with no significant past medical history who presents because of 1 day of epigastric pain. Patient sometimes referred to us chest pain and other times and abdominal pain, however on examination is in the substernal epigastric region, nonradiating, central feels like dull and achy. About 6 to/10 in severity. Associated with nausea vomiting every 2 hours her last bowel movement for about 2 days ago which is usual for her but she passing gases.on admission she has mild leukocytosis of 12.6 K. Hemoglobin stable at 12.9. Electrolytes and kidney creatinine are within normal limits.liver enzymes including bilirubin were high but they're trending down slowly.amylase and lipase were elevated however they are improving from more than 20,000 down to 5591 of lipase.urinalysis was suspicious for infection.patient denies dysuria or urgency however she noticed increased frequency even before coming to the hospital. Urine culture was sent and patient was started on ceftriaxone.NG tube was tried however patient could not tolerate it. CAT scan of the abdomen shows extensive retroperitoneal fluid probably due to acute pancreatitis and left renal calculi with partial obstruction of the left kidney with a stone and the left ureteropelvic junction. Chest x-ray was unremarkable. And gallbladder shows no gallstone. common bile duct is within normal limits.possible fatty infiltration of the liver 11/13/2018 Patient today feels better she's more, and less distressed than yesterday. His abdominal pain was resolved and she stated to me it is 0/10 today. She has small episode of vomiting but after that the stumps which is significant difference compared to yesterday when she was vomiting every 12 hours. She hasn 't bowel movement or passed gas yet. Patient however feels hungry and wants to be start her diet. Orders given for clear liquid diet. GI consult has been called. Patient today was been a little bit tachycardic with heart rate went up to 1:30 and now back to 117. Her leukocytosis is almost doubled from 12.6 up to 20 3K. We change her antibiotic from ceftriaxone to meropenem. CONSTITUTIONAL: No fever, no malaise, no fatigue. HEENT: No recent visual problems or hearing problems. Denied any sore throat. CARDIOVASCULAR: No orthopnea, PND, no palpitations, no syncope. PULMONARY: No shortness of breath, no cough, no hemoptysis. GASTROINTESTINAL: No diarrhea, no nausea, no vomiting, no abdominal pain. Normoactive bowel sounds. NEUROLOGICAL: No headaches, no weakness, no numbness. HEMATOLOGICAL: Denies any bleeding or petechiae. GENITOURINARY: Denies any burning micturition, frequency, or urgency. MUSCULOSKELETAL/RHEUMATOLOGICAL: Denies any joint pain, swelling, or any muscle pain. ENDOCRINE: Denies any polyuria or polydipsia. Medication reviews and including albuterol, Symbicort, heparin, meropenem, morphine, Narcan, Zofran, Protonix, and normal saline. Objective - Vital Signs Vital signs: Vital Signs Temp 98.9 F 11/13/18 14:40 Pulse 82 11/13/18 16:48 Resp 16 11/13/18 14:40 BP 141/91 11/13/18 14:40 Pulse Ox 95 11/13/18 14:40 Intake & Output 11/12/18 11/13/18 11/13/18 18:59 06:59 18:59 Intake Total 2600 320 Output Total 300 50 Balance -300 2550 320 Intake: Intake, IV Titration 2600 Amount Sodium Chloride 0.9% 1, 2600 000 ml @ 200 mls/hr IV . Q5H [facility] Rx#:[id number] Oral 320 Output: Emesis 300 50 Other: Voiding Method Toilet Toilet Diaper Diaper # Voids 4 2 - Exam GENERAL: The patient is alert and oriented x3, not in any acute distress. Well developed, well nourished. HEENT: Pupils are round and equally reacting to light. EOMI. No scleral icterus. No conjunctival pallor. Normocephalic, atraumatic. No pharyngeal erythema. No thyromegaly. CARDIOVASCULAR: S1 and S2 present. No murmurs, rubs, or gallops. PULMONARY: Chest is clear to auscultation, no wheezing or crackles. ABDOMEN: Soft, nontender, nondistended, normoactive bowel sounds. No palpable organomegaly. MUSCULOSKELETAL: No joint swelling or deformity. EXTREMITIES: No cyanosis, clubbing, or pedal edema. NEUROLOGICAL: Gross neurological examination did not reveal any focal deficits. SKIN: No rashes. - Labs CBC & Chem 7: 11/13/18 08:04 11/13/18 08:04 Labs: Abnormal Lab Results - Last 24 Hours (Table) 11/13/18 11/13/18 Range/Units 08:04 08:04 WBC 23.0 H (3.8-10.6) k/uL MCHC 30.3 L (31.0-37.0) g/dL Neutrophils # 20.6 H (1.3-7.7) k/uL BUN 6 L (7-17) mg/dL AST 384 H (14-36) U/L ALT 687 H (9-52) U/L Alkaline Phosphatase 176 H (38-126) U/L Amylase 162 H (30-110) U/L Lipase 1308 H (23-300) U/L Microbiology - Last 24 Hours (Table) 11/13/18 01:20 Urine Culture - Preliminary Urine,Clean Catch Assessment and Plan Assessment: acute pancreatitis Continuous nausea and vomiting probably secondary to above Elevated liver enzymes, trending down Urinary tract infection dehydration Mild leukocytosis Bilateral renal stone Plan: this is a pleasant 23 years old female who presents with acute pancreatitis and elevated liver enzymes. Continue with IV fluid, nothing by mouth, pain management, call GI evaluation, we'll do imaging of the chest and abdomen.Labs and medication were reviewed.start ceftriaxone and sent for urine culture. Continue same treatment. Continue with symptomatic treatment. Resume home medication. Monitor lytes and vitals. DVT and GI prophylaxis. Further recommendations of the clinical course of the patient DVT prophylaxis: Subcutaneous heparin GI Prophylaxis: Protonix Prognosis is guarded
[2018-11-13] MEDS ORDERED: ONDANSETRON 4 MG/2 ML VIAL IVP STA (17:15)
[2018-11-14] MEDS: SODIUM CHLORIDE 0.9% 1,000 ML IV SCH ×5 (00:34→21:19)
[2018-11-14] MEDS: MEROPENEM 1 GM in SODIUM CHLORIDE 0.9% 100 ML IVPB SCH ×4 (00:35→23:26)
[2018-11-14] MEDS: ONDANSETRON 4 MG/2 ML VIAL IVP PRN ×3 (03:01→23:30)
[2018-11-14] MEDS: MORPHINE SULFATE 4 MG/ML SYRINGE IV PRN ×2 (03:22→21:12)
[2018-11-14] MEDS: SYMBICORT 160-4.5 MCG INHALER INHALATION SCH ×2 (08:13→21:06)
[2018-11-14] MEDS: IPRATROPIUM-ALBUTEROL 3 ML NEB INHALATION SCH ×4 (08:13→21:06)
[2018-11-14] MEDS: PANTOPRAZOLE 40 MG/10 ML VIAL IV SCH (09:41)
[2018-11-14] MEDS: HEPARIN SODIUM,PORCINE 5,000 UNIT/ML 1 ML VIAL SQ SCH ×2 (09:42→20:33)
[2018-11-14 11:06] LABS: Basophils % (A) 0 %; Eosinophils % (A) 0 %; HCT 37.6 % (34.0-46.0); Lymphocytes # (A) 1.8 k/uL (1.0-4.8); Lymphocytes % (A) 10 %; MCH 27.4 pg (25.0-35.0); MCHC 31.8 g/dL (31.0-37.0); MCV 86.2 fL (80.0-100.0); Monocytes # (A) 1.2 k/uL (0-1.0); Monocytes % (A) 7 %; Neutrophils # (A) 14.2 k/uL (1.3-7.7); Neutrophils % (A) 81 %; Platelet Count 284 k/uL (150-450); RBC 4.36 m/uL (3.80-5.40); RDW 14.5 % (11.5-15.5); WBC 17.4 k/uL (3.8-10.6)
[2018-11-14 11:12] LABS: ALT 392 U/L (9-52); AST 127 U/L (14-36); Albumin 3.3 g/dL (3.5-5.0); Alkaline Phosphatase 137 U/L (38-126); Anion Gap 10 mmol/L; Bilirubin, Delta 0.4 mg/dL (0.0-0.2); Bilirubin,Unconjugated 0.4 mg/dL (0.0-1.1); Blood Urea Nitrogen 7 mg/dL (7-17); Carbon Dioxide 27 mmol/L (22-30); Chloride 104 mmol/L (98-107); Glucose 83 mg/dL (74-99); Potassium 3.5 mmol/L (3.5-5.1); Sodium 141 mmol/L (137-145); Total Bilirubin 0.8 mg/dL (0.2-1.3); Total Protein 6.2 g/dL (6.3-8.2)
--- NOTE | 2018-11-14 22:09 | P.PN ---
Subjective this is a pleasant 23 years old female with no significant past medical history who presents because of 1 day of epigastric pain. Patient sometimes referred to us chest pain and other times and abdominal pain, however on examination is in the substernal epigastric region, nonradiating, central feels like dull and achy. About 6 to/10 in severity. Associated with nausea vomiting every 2 hours her last bowel movement for about 2 days ago which is usual for her but she passing gases.on admission she has mild leukocytosis of 12.6 K. Hemoglobin stable at 12.9. Electrolytes and kidney creatinine are within normal limits.liver enzymes including bilirubin were high but they're trending down slowly.amylase and lipase were elevated however they are improving from more than 20,000 down to 5591 of lipase.urinalysis was suspicious for infection.patient denies dysuria or urgency however she noticed increased frequency even before coming to the hospital. Urine culture was sent and patient was started on ceftriaxone.NG tube was tried however patient could not tolerate it. CAT scan of the abdomen shows extensive retroperitoneal fluid probably due to acute pancreatitis and left renal calculi with partial obstruction of the left kidney with a stone and the left ureteropelvic junction. Chest x-ray was unremarkable. And gallbladder shows no gallstone. common bile duct is within normal limits.possible fatty infiltration of the liver 11/13/2018 Patient today feels better she's more, and less distressed than yesterday. His abdominal pain was resolved and she stated to me it is 0/10 today. She has small episode of vomiting but after that the stumps which is significant difference compared to yesterday when she was vomiting every 12 hours. She hasn 't bowel movement or passed gas yet. Patient however feels hungry and wants to be start her diet. Orders given for clear liquid diet. GI consult has been called. Patient today was been a little bit tachycardic with heart rate went up to 1:30 and now back to 117. Her leukocytosis is almost doubled from 12.6 up to 20 3K. We change her antibiotic from ceftriaxone to meropenem. 11/14/2018 pt pancreatitis is improving , no abd pain , and pt wanted to eat, diet is advanced. also her leukocytosis and tachycardia is improving after changing her antibiotic to meropenem. CONSTITUTIONAL: No fever, no malaise, no fatigue. HEENT: No recent visual problems or hearing problems. Denied any sore throat. CARDIOVASCULAR: No orthopnea, PND, no palpitations, no syncope. PULMONARY: No shortness of breath, no cough, no hemoptysis. GASTROINTESTINAL: No diarrhea, no nausea, no vomiting, no abdominal pain. Normoactive bowel sounds. NEUROLOGICAL: No headaches, no weakness, no numbness. HEMATOLOGICAL: Denies any bleeding or petechiae. GENITOURINARY: Denies any burning micturition, frequency, or urgency. MUSCULOSKELETAL/RHEUMATOLOGICAL: Denies any joint pain, swelling, or any muscle pain. ENDOCRINE: Denies any polyuria or polydipsia. Medication reviews and including albuterol, Symbicort, heparin, meropenem, morphine, Narcan, Zofran, Protonix, and normal saline. Objective - Vital Signs Vital signs: Vital Signs Temp 98.7 F 11/14/18 19:20 Pulse 110 H 11/14/18 19:40 Resp 18 11/14/18 19:20 BP 146/94 11/14/18 19:20 Pulse Ox 97 11/14/18 19:20 Intake & Output 11/14/18 11/14/18 11/15/18 06:59 18:59 06:59 Intake Total 2000 100 Output Total 100 0 Balance 1900 100 Intake: Intake, IV Titration 1999 100 Amount Meropenem 1 gm In Sodium 2000 100 Chloride 0.9% 100 ml @ 200 mls/hr IVPB Q8HR [facility] Rx#:[id number] Output: Emesis 100 0 Other: # Voids 4 4 - Exam GENERAL: The patient is alert and oriented x3, not in any acute distress. Well developed, well nourished. HEENT: Pupils are round and equally reacting to light. EOMI. No scleral icterus. No conjunctival pallor. Normocephalic, atraumatic. No pharyngeal erythema. No thyromegaly. CARDIOVASCULAR: S1 and S2 present. No murmurs, rubs, or gallops. PULMONARY: Chest is clear to auscultation, no wheezing or crackles. ABDOMEN: Soft, nontender, nondistended, normoactive bowel sounds. No palpable organomegaly. MUSCULOSKELETAL: No joint swelling or deformity. EXTREMITIES: No cyanosis, clubbing, or pedal edema. NEUROLOGICAL: Gross neurological examination did not reveal any focal deficits. SKIN: No rashes. - Labs CBC & Chem 7: 11/14/18 10:32 11/14/18 10:32 Labs: Abnormal Lab Results - Last 24 Hours (Table) 11/14/18 11/14/18 Range/Units 10:32 10:32 WBC 17.4 H (3.8-10.6) k/uL Neutrophils # 14.2 H (1.3-7.7) k/uL Monocytes # 1.2 H (0-1.0) k/uL Delta Bilirubin 0.4 H (0.0-0.2) mg/dL AST 127 H (14-36) U/L ALT 392 H (9-52) U/L Alkaline Phosphatase 137 H (38-126) U/L Total Protein 6.2 L (6.3-8.2) g/dL Albumin 3.3 L (3.5-5.0) g/dL Microbiology - Last 24 Hours (Table) 11/13/18 01:20 Urine Culture - Final Urine,Clean Catch Assessment and Plan Assessment: acute pancreatitis Continuous nausea and vomiting probably secondary to above Elevated liver enzymes, trending down Urinary tract infection dehydration Mild leukocytosis Bilateral renal stone Plan: this is a pleasant 23 years old female who presents with acute pancreatitis and elevated liver enzymes. Continue with IV fluid, nothing by mouth, pain management, call GI evaluation, we'll do imaging of the chest and abdomen.Labs and medication were reviewed.start ceftriaxone and sent for urine culture. Continue same treatment. Continue with symptomatic treatment. Resume home medication. Monitor lytes and vitals. DVT and GI prophylaxis. Further recommendations of the clinical course of the patient DVT prophylaxis: Subcutaneous heparin GI Prophylaxis: Protonix Prognosis is guarded
[2018-11-15] MEDS: MORPHINE SULFATE 4 MG/ML SYRINGE IV PRN ×3 (01:19→10:04)
[2018-11-15] MEDS: SODIUM CHLORIDE 0.9% 1,000 ML IV SCH ×3 (02:18→13:31)
[2018-11-15] MEDS: ONDANSETRON 4 MG/2 ML VIAL IVP PRN (05:18)
[2018-11-15] MEDS: SYMBICORT 160-4.5 MCG INHALER INHALATION SCH (09:05)
[2018-11-15] MEDS: IPRATROPIUM-ALBUTEROL 3 ML NEB INHALATION SCH ×3 (09:05→16:27)
[2018-11-15 09:08] LABS: Basophils % (A) 0 %; Eosinophils # (A) 0.1 k/uL (0-0.7); Eosinophils % (A) 0 %; HCT 37.3 % (34.0-46.0); HGB 11.5 gm/dL (11.4-16.0); Lymphocytes # (A) 2.3 k/uL (1.0-4.8); Lymphocytes % (A) 15 %; MCH 26.5 pg (25.0-35.0); MCHC 30.8 g/dL (31.0-37.0); MCV 85.8 fL (80.0-100.0); Mean Platelet Volume 6.6; Monocytes % (A) 7 %; Neutrophils # (A) 11.3 k/uL (1.3-7.7); Neutrophils % (A) 75 %; Platelet Count 304 k/uL (150-450); RBC 4.35 m/uL (3.80-5.40); RDW 14.3 % (11.5-15.5)
[2018-11-15 09:18] LABS: ALT 255 U/L (9-52); AST 62 U/L (14-36); Albumin 3.1 g/dL (3.5-5.0); Alkaline Phosphatase 118 U/L (38-126); Anion Gap 6 mmol/L; Bilirubin, Delta 0.3 mg/dL (0.0-0.2); Bilirubin,Unconjugated 0.3 mg/dL (0.0-1.1); Blood Urea Nitrogen 7 mg/dL (7-17); Calcium 8.9 mg/dL (8.4-10.2); Carbon Dioxide 29 mmol/L (22-30); Chloride 105 mmol/L (98-107); Glucose 89 mg/dL (74-99); Potassium 3.4 mmol/L (3.5-5.1); Sodium 140 mmol/L (137-145); Total Bilirubin 0.6 mg/dL (0.2-1.3); Total Protein 5.7 g/dL (6.3-8.2)
[2018-11-15] MEDS: PANTOPRAZOLE 40 MG/10 ML VIAL IV SCH (09:25)
[2018-11-15] MEDS: HEPARIN SODIUM,PORCINE 5,000 UNIT/ML 1 ML VIAL SQ SCH (09:25)
[2018-11-15] MEDS: MEROPENEM 1 GM in SODIUM CHLORIDE 0.9% 100 ML IVPB SCH (09:46)
[2018-11-15] MEDS ORDERED: ACETAMINOPHEN TAB 325 MG TAB PO PRN (14:36)
[2018-11-15] MEDS ORDERED: POTASSIUM CHLORIDE ER 20 MEQ TAB.ER PO STA (15:04)
--- NOTE | 2018-11-15 16:00 | P.DS ---
Providers Date of admission: 11/11/18 23:54 Attending physician: Ethel Davies Consults: 11/12/18 14:13 Consult Physician Urgent Consulting Provider: Hill Loredo Consult Reason/Comments: pancreatitis with elevated LFT Do you want consulting provider notified?: Yes Primary care physician: Yao Johnson [facility] Course: Patient was admitted secondary to acute pancreatitis etiology is not clear patient's may have passed gallstones did have elevated liver enzymes which are coming down patient's diet is being advanced to low-fat regular diet. Ultrasound did not show any gallstones. Patient is on meropenem because of systemic inflammatory response in severity of pancreatitis although there is no evidence of neck present pancreatitis patient will be discharged on Augmentin for 3 more days patient remained tachycardic during this hospitalization which was believed secondary to pain although her pain significantly improved now and pancreatitis improved in spite of which she remains tachycardic because of which I'm obtaining TSH with T4. If patient turns out to be hyperthyroid and that will be treated appropriately I suspicion is low for pulmonary embolism patient does not have any other signs or symptoms of PE except for mild tachycardia. If TSH is with him on normal limits patient will be discharged on metoprolol patient's heart rate is in low 100s. PHYSICAL EXAMINATION: GENERAL: The patient is alert and oriented x3, not in any acute distress. Well developed, well nourished. HEENT: Pupils are round and equally reacting to light. EOMI. No scleral icterus. No conjunctival pallor. Normocephalic, atraumatic. No pharyngeal erythema. No thyromegaly. CARDIOVASCULAR: S1 and S2 present. No murmurs, rubs, or gallops. PULMONARY: Chest is clear to auscultation, no wheezing or crackles. ABDOMEN: Soft, nontender, nondistended, normoactive bowel sounds. No palpable organomegaly. MUSCULOSKELETAL: No joint swelling or deformity. EXTREMITIES: No cyanosis, clubbing, or pedal edema. NEUROLOGICAL: Gross neurological examination did not reveal any focal deficits. SKIN: No rashes. Assessment and Plan Assessment: acute pancreatitis Elevated liver enzymes, trending down be secondary to passed gallstone I do not believe patient has urinary tract infection dehydration Mild leukocytosis reactive secondary to pancreatitis Bilateral renal stone Plan - Discharge Summary Discharge Rx Participant: No New Discharge Prescriptions: New Albuterol Inhaler [Ventolin Hfa Inhaler] 1 - 2 puff INHALATION Q6HR PRN #1 inhaler PRN Reason: Shortness Of Breath Or Wheezing Amoxic-Pot Clav 875-125Mg [Augmentin 875-125] 1 tab PO BID 3 Days #6 tab Metoprolol Tartrate 25 mg PO BID #60 tab No Action Ibuprofen [Motrin Ib] 400 mg PO Q6HR PRN PRN Reason: Pain Discharge Medication List Ibuprofen [Motrin Ib] 400 mg PO Q6HR PRN 11/11/18 [History] Albuterol Inhaler [Ventolin Hfa Inhaler] 1 - 2 puff INHALATION Q6HR PRN #1 inhaler 11/15/18 [Rx] Amoxic-Pot Clav 875-125Mg [Augmentin 875-125] 1 tab PO BID 3 Days #6 tab [Rx] Metoprolol Tartrate 25 mg PO BID #60 tab 11/15/18 [Rx] Follow up Appointment(s)/Referral(s): Alex Samayoa MD [Primary Care Provider] - 11/19/18 11:00 am Discharge Disposition: HOME SELF-CARE
[2018-11-15 16:10] LABS: T4, Free (Free Thyroxine) 1.22 ng/dL (0.78-2.19)
[2018-11-15 17:04] VITALS: BP 153/95; PULSE 113; RESP 18; TEMP 97.8
== END 2018-11-15 17:36 | disposition home or self-care (01) | DRG 439 ==
LOC: SUPCPDRO 20:36 → EC 20:36 → 4SSUR 23:54 → 6PED 11-15 09:10
PROVIDERS: ADMIT Hospitalist; ATTEND Hospitalist
DX: K85.90 Acute pancreatitis without necrosis or infection, unspecified (principal); Z68.42 Body mass index [BMI] 45.0-49.9, adult; E66.01 Morbid (severe) obesity due to excess calories; E86.0 Dehydration; J45.909 Unspecified asthma, uncomplicated; K80.20 Calculus of gallbladder without cholecystitis without obstruction; N20.0 Calculus of kidney; R00.0 Tachycardia, unspecified; D72.829 Elevated white blood cell count, unspecified; F32.9 Major depressive disorder, single episode, unspecified
CPT/HCPCS: 36415; 71045; 74018; 74176; 76705; 80048; 80053; 80061; 80076; 81001; 81025; 82150; 82550; 82553; 83605; 83690; 84439; 84443; 84484; 84703; 85025; 87086; 93005; 94640; 96361; 96374; 96375; 99285

== ENCOUNTER → 2020-04-04 | Outpatient (CLI) | payer OTHER | END | disposition home or self-care (01) | LOC: LABWHC1 10:52 | PROVIDERS: ATTEND Internal Medicine | DX: Z32.01 Encounter for pregnancy test, result positive (principal) | CPT/HCPCS: 36415; 84702 ==

== ENCOUNTER 2020-08-10 03:43 | Outpatient (CLI) | payer OTHER ==
[2020-08-10 05:23] LABS: Appearance,Urine Cloudy (Clear); Bacteria,Urine Many /hpf; Bilirubin,Urine Negative (Negative); Blood,Urine Small (Negative); Color,Urine Yellow; Glucose,Urine (UA) Negative (Negative); Ketones,Urine Negative (Negative); Leukocyte Esterase,Urine Large (Negative); Mucus,Urine Rare /hpf; Nitrite,Urine Negative (Negative); PH, Urine 6.5 (5.0-8.0); Protein,Urine Trace (Negative); RBC,Urine 38 /hpf (0-5); Specific Gravity,Urine 1.012 (1.001-1.035); Squamous Epithelial Cell,Urine 24 /hpf (0-4); Urobilinogen,Urine <2.0 mg/dL (<2.0); WBC,Urine 32 /hpf (0-5)
[2020-08-10] MEDS ORDERED: ACETAMINOPHEN TAB 325 MG TAB PO PRN (05:37)
[2020-08-10] MEDS ORDERED: LACTATED RINGERS 1,000 ML IV SCH (05:45)
[2020-08-10 06:21] VITALS: RESP 16; TEMP 98.7
[2020-08-10 06:41] VITALS: BP 120/76; PULSE 98
--- NOTE | 2020-08-10 08:07 | P.MSEPDOC ---
Presenting Problems - Arrival Data Date of Arrival on Unit: 08/10/20 Time of Arrival on Unit: 03:43 Mode of Transport: EMS - Complaint OB-Reason for Admission/Chief Complaint: Decreased Movement, Pain Medical History - Information : 2 Para: 1 Term: 1 : 0 Abortions: Spontaneous or Elective: 0 Number of Living Children: 1 - Gestational Age Gestational Age by DELGADO (wks/days): 22 Weeks and 5 Days Review of Systems - Review of Systems Constitutional: No problems Breast: No problems ENT: No problems Cardiovascular: No problems Respiratory: No problems Gastrointestinal: No problems Genitourinary: Dysuria, Urgency, Increased frequency Musculoskeletal: No problems Neurological: No problems Skin: No problems Comment: Pt did not state she had any urinary symptoms, but has been to the bathroom x4 since 399 Vital Signs - Temperature Temperature: 98.7 F Temperature Source: Temporal Artery Scan - Pulse Right Brachial Pulse Rate: 98 Pulse Assessment Method: Automatic Cuff - Respirations Respiratory Rate: 16 Oxygen Delivery Method: Room Air O2 Sat by Pulse Oximetry: 98 - Blood Pressure Right Arm Blood Pressure: 120/76 Blood Pressure Mean: 90 Blood Pressure Source: Automatic Cuff Medical Screen Scoring (Pre) - Cervical Exam Dilation: 0 cm = 0 Membranes: Intact - Uterine Contractions Frequency: N/A Duration: N/A Intensity: N/A - Maternal Vital Signs Maternal Temperature: N/A Maternal Blood Pressure: N/A Signs of Preeclampsia: N/A Maternal Respirations: N/A - Maternal Trauma Maternal Trauma: N/A - Assessment - Baby A Baseline FHR: 136-150 Position: N/A Station: N/A - Total Score - Baby A Total Score - Baby A: 0 - Total Score - Baby B Total Score - Baby B: 0 - Total Score - Baby C Total Score - Baby C: 0 - Level of Risk - Baby A Level of Risk - Baby A: Low (0-5) - Level of Risk - Baby B Level of Risk - Baby B: Low (0-5) - Level of Risk - Baby C Level of Risk - Baby C: Low (0-5) Physician Notification (Pre) - Physician Notified Physician Notified Date: 08/10/20 Physician Notified Time: 04:20 New Order Received: Yes - Notification Comment Comment: Dr. Tomas notified of DOM pt in triage with c/o of lower suprapubic abdominal pain since 1999 and c/o decreased movement since 2199. Orders received to send urinalysis and preform a cervical check Medical Screen Scoring (Post) - Cervical Exam Dilation: 0 cm = 0 Membranes: Intact - Uterine Contractions Frequency: N/A Duration: N/A Intensity: N/A - Maternal Vital Signs Maternal Temperature: N/A Maternal Blood Pressure: N/A Signs of Preeclampsia: N/A Maternal Respirations: N/A - Pain Assessment Pain Location and Character: Lower, Abdomen Pain Scale Used: Numeric (1 - 10) Pain Intensity: 4 Pain Management Goal: 2 Pain Description: Burning, Pressure Pain Radiation Location: none Pain Frequency: Constant Pain Behavior: Vocalization Pain Aggravating Factors: None Pharmacological Interventions: Discuss Pain Med Options, PRN Medication - Maternal Trauma Maternal Trauma: N/A - Assessment - Baby A Heart Rate: 136-150 Position: N/A Station: N/A - Total Score Total Score - Baby A: 0 Total Score - Baby B: 0 Total Score - Baby C: 0 - Post Treatment Level of Risk Post Treatment Level of Risk - Baby A: Low (0-5) Post Treatment Level of Risk - Baby B: Low (0-5) Post Treatment Level of Risk - Baby C: Low (0-5) Disposition - Disposition OB Disposition: Written follow up instructions reviewed Discharge Date: 08/10/20 Discharge Time: 06:40 I agree with the RN Medical Screening Exam: Yes Risk & Benefit of care provided described in d/c instruction: Yes Diagnosis: URINARY TRACT INFECTION, SITE NOT SPECIFIED (Patient presented to labor and delivery via EMS for complaints of suprapubic pain. Patient gets her care per Dr. Sanchez and states that she is approximately 22 weeks . Patient took EMS to the hospital because she does not have reliable transportation. Evaluation here demonstrated cardiac activity and a urinalysis consistent with urinary tract infection. Due to my concerns with the patient not being able to get medications from her primary fire technician and transportation issues I gave her 1 dose of Ancef IV and this gave her prescription for Keflex 500 mg 4 times a day. I did discuss with the patient the importance of taking the medications and follow-up. We did discuss her transportation issues appears that her father is her only source of transportation and she does not like to bother him. Mind her that her primary fire technician, Dr. Sanchez, does not practice at this hospital and then it is in her best interest if possible to go to [facility] if possible, however she is always welcome here.)
== END 2020-08-10 06:40 | disposition home or self-care (01) ==
LOC: FBPOP 03:43
PROVIDERS: ATTEND Obstetrics & Gynecology
DX: O23.42 Unspecified infection of urinary tract in pregnancy, second trimester (principal); Z3A.22 22 weeks gestation of pregnancy
CPT/HCPCS: 96361; 96365; 81001; G0463; J0690; 96360; 96366; 96367; 99213; 99214

== ENCOUNTER 2021-05-31 19:21 | Emergency (ER) | payer OTHER ==
[2021-05-31 19:51] VITALS: BP 107/78; PULSE 95; RESP 18; TEMP 98
--- NOTE | 2021-05-31 20:56 | XR ---
EXAMINATION TYPE: XR ankle complete RT DATE OF EXAM: 05/31/2021 COMPARISON: NONE HISTORY: Foot pain ankle pain TECHNIQUE: 3 views FINDINGS: I see no fracture nor dislocation. Joint spaces are normal. Ankle mortise is anatomic. IMPRESSION: Negative right ankle exam.
--- NOTE | 2021-05-31 20:57 | XR ---
EXAMINATION TYPE: XR foot complete RT DATE OF EXAM: 05/31/2021 COMPARISON: NONE HISTORY: Foot pain TECHNIQUE: 3 views FINDINGS: Metatarsals are intact. I see no fracture nor dislocation. There is soft tissue swelling ar ound the forefoot. IMPRESSION: Soft tissue swelling. No fracture seen.
--- NOTE | 2021-05-31 21:11 | ED ---
Lower Extremity Injury HPI - General Chief Complaint: Extremity Injury, Lower Stated Complaint: R Foot Burned by hot water Time Seen by Provider: 05/31/21 20:18 Source: patient Mode of arrival: wheelchair Limitations: physical limitation - History of Present Illness Initial Comments: 25-year-old female presenting to the emergency department with a chief complaint of right foot pain. Patient reports he dropped the pain on her midfoot. She also reports some erythema in the region but denies any ecchymosis. Reports pain with inhalation any weightbearing. Pain is alleviated at rest. Reports the pain is sharp in nature 04/18. Denies any weakness or paresthesias. This occurred about 2 hours prior to arrival. - Related Data Home Medications Medication Instructions Recorded Confirmed Pnv,Calcium 72/Iron/Folic Acid 1 each PO DAILY 08/10/20 08/10/20 [ Plus Tablet] Allergies Allergy/AdvReac Type Severity Reaction Status Date / Time No Known Allergies Allergy Verified 05/31/21 19:51 Review of Systems ROS Statement: Those systems with pertinent positive or pertinent negative responses have been documented in the HPI. ROS Other: All systems not noted in ROS Statement are negative. Past Medical History Past Medical History: Asthma History of Any Multi-Drug Resistant Organisms: None Reported Past Surgical History: No Surgical Hx Reported Past Psychological History: No Psychological Hx Reported, Anxiety, Depression Smoking Status: Never smoker - Past Family History Father Family Medical History: Diabetes Mellitus, Myocardial Infarction ([place]) Mother Family Medical History: No Reported History General Exam Limitations: physical limitation General appearance: alert, in no apparent distress, obese Head exam: Present: atraumatic, normocephalic, normal inspection Eye exam: Present: normal appearance, PERRL, EOMI Pupils: Present: normal accommodation ENT exam: Present: normal exam, normal oropharynx, mucous membranes moist Neck exam: Present: normal inspection, full ROM. Absent: tenderness Respiratory exam: Present: normal lung sounds bilaterally. Absent: respiratory distress, wheezes, rales, rhonchi, stridor Cardiovascular Exam: Present: regular rate, normal rhythm, normal heart sounds. Absent: systolic murmur Extremities exam: Present: full ROM, tenderness (Midfoot and fifth metatarsal tenderness), normal capillary refill, other (Sensation intact in the right foot. Palpable DP and PT bilaterally). Absent: normal inspection (Mild swelling and erythema on the dorsal aspect of the foot), pedal edema, joint swelling, calf tenderness Back exam: Present: normal inspection, full ROM. Absent: tenderness, CVA tenderness (R), CVA tenderness (L), muscle spasm Neurological exam: Present: alert, oriented X3 Psychiatric exam: Present: normal affect, normal mood Skin exam: Present: warm, dry, intact, normal color Course Vital Signs 05/31/21 19:48 Temperature 98 F Pulse Rate 95 Respiratory 18 Rate Blood Pressure 107/78 O2 Sat by Pulse 95 Oximetry Medical Decision Making - Medical Decision Making 25-year-old female presents to the emergency department with a chief complaint rectal pain. Physical examination, she is neurovascularly intact. X-rays are unremarkable. Atilio wrap will be applied. Advised Tylenol or Motrin. Rest, ice, compression and elevation. Return parameters discussed the patient was standing agreeable. Case discussed physician. Disposition Clinical Impression: Right foot injury, Right foot pain Disposition: HOME SELF-CARE Condition: Stable Instructions (If sedation given, give patient instructions): Foot Contusion (ED) Additional Instructions: Please return to the Emergency Department if symptoms worsen or any other concerns. Is patient prescribed a controlled substance at d/c from ED?: No Referrals: Alex Samayoa MD [Primary Care Provider] - 1-2 days Time of Disposition: 21:11
== END 2021-05-31 21:15 | disposition home or self-care (01) ==
LOC: EC 19:21
DX: S99.921A Unspecified injury of right foot, initial encounter (principal); E66.9 Obesity, unspecified; Z83.3 Family history of diabetes mellitus; Z82.49 Family history of ischemic heart disease and other diseases of the circulatory system; Z68.42 Body mass index [BMI] 45.0-49.9, adult; W20.8XXA Other cause of strike by thrown, projected or falling object, initial encounter
CPT/HCPCS: 99283

== ENCOUNTER 2021-06-18 18:44 | Emergency (ER) | payer OTHER ==
[2021-06-18] MEDS ORDERED: IPRATROPIUM-ALBUTEROL 3 ML NEB INHALATION STA (19:20)
--- NOTE | 2021-06-18 19:23 | ED ---
General Adult HPI - General Chief complaint: Upper Respiratory Infection Stated complaint: Cough/RODRIGO Time Seen by Provider: 06/18/21 18:55 Source: patient, EMS, RN notes reviewed, old records reviewed Mode of arrival: EMS - History of Present Illness Initial comments: This is a 26 her old female presents emergency Department via and does because she states in today she started coughing and had some pinkish sputum after a while and became very short of breath. Patient states she has a history of asthma. Patient states about a year and half ago she had double pneumonia and almost since she was very nervous and decided come to the emergency department to be evaluated. Patient denies any chest pain. Patient denies any palpitations. Patient denies lightheadedness or dizziness. Patient denies any headache patient denies numbness weakness. Patient denies any abdominal pain patient denies nausea vomiting diarrhea. - Related Data Home Medications Medication Instructions Recorded Confirmed Albuterol Sulfate [Albuterol 2 puff PO RT-Q6H PRN 06/18/21 06/18/21 Sulfate Hfa] Previous Rx's Medication Instructions Recorded Albuterol Inhaler [Ventolin Hfa 2 puff INHALATION RT-QID #2 puff 06/18/21 Inhaler] Azithromycin [Zithromax Tri-Ruben] 500 mg PO DAILY #3 tab 06/18/21 Allergies Allergy/AdvReac Type Severity Reaction Status Date / Time No Known Allergies Allergy Verified 06/18/21 20:02 Review of Systems ROS Statement: Those systems with pertinent positive or pertinent negative responses have been documented in the HPI. ROS Other: All systems not noted in ROS Statement are negative. Past Medical History Past Medical History: Asthma History of Any Multi-Drug Resistant Organisms: None Reported Past Surgical History: No Surgical Hx Reported Past Psychological History: No Psychological Hx Reported, Anxiety, Depression Smoking Status: Never smoker - Past Family History Father Family Medical History: Diabetes Mellitus, Myocardial Infarction ([place]) Mother Family Medical History: No Reported History General Exam - General Exam Comments Initial Comments: GENERAL: Patient is well-developed and well-nourished. Patient is nontoxic and well- hydrated and is in mild distress. ENT: Neck is soft and supple. No significant lymphadenopathy is noted. Oropharynx is clear. Moist mucous membranes. Neck has full range of motion without eliciting any pain. EYES: The sclera were anicteric and conjunctiva were pink and moist. Extraocular movements were intact and pupils were equal round and reactive to light. Eyelids were unremarkable. PULMONARY: Unlabored respirations. Good breath sounds bilaterally. No audible rales rhonchi or wheezing was noted. CARDIOVASCULAR: Patient is tachycardic at 110 bpm ABDOMEN: Soft and nontender with normal bowel sounds. SKIN: Skin is clear with no lesions or rashes and otherwise unremarkable. NEUROLOGIC: Patient is alert and oriented x3. Cranial nerves II through XII are grossly intact. Motor and sensory are also intact. Normal speech, volume and content. Symmetrical smile. MUSCULOSKELETAL: Normal extremities with adequate strength and full range of motion. No lower extremity swelling or edema. No calf tenderness. LYMPHATICS: No significant lymphadenopathy is noted PSYCHIATRIC: Normal psychiatric evaluation. Course Vital Signs 06/18/21 06/18/21 18:53 21:09 Temperature 98.6 F Pulse Rate 107 H 107 H Respiratory 18 Rate Blood Pressure 111/66 O2 Sat by Pulse 96 Oximetry Medical Decision Making - Medical Decision Making X-ray shows questionable bilateral infiltrates versus atelectasis. Since patient has developed a significant cough and sent the patient home on antibiotics and gave a dose Rocephin in the ER. - Lab Data Result diagrams: 06/18/21 19:39 06/18/21 19:39 Lab Results 06/18/21 06/18/21 06/18/21 Range/Units 19:39 19:39 19:39 WBC 13.9 H (3.8-10.6) k/uL RBC 4.98 (3.80-5.40) m/uL Hgb 14.2 (11.4-16.0) gm/dL Hct 43.0 (34.0-46.0) % MCV 86.4 (80.0-100.0) fL MCH 28.5 (25.0-35.0) pg MCHC 32.9 (31.0-37.0) g/dL RDW 14.3 (11.5-15.5) % Plt Count 357 (150-450) k/uL MPV 8.1 Neutrophils % 76 % Lymphocytes % 16 % Monocytes % 5 % Eosinophils % 1 % Basophils % 0 % Neutrophils # 10.6 H (1.3-7.7) k/uL Lymphocytes # 2.2 (1.0-4.8) k/uL Monocytes # 0.7 (0-1.0) k/uL Eosinophils # 0.2 (0-0.7) k/uL Basophils # 0.1 (0-0.2) k/uL D-Dimer 0.31 (<0.60) mg/L FEU Sodium 139 (137-145) mmol/L Potassium 4.4 (3.5-5.1) mmol/L Chloride 104 (98-107) mmol/L Carbon Dioxide 25 (22-30) mmol/L Anion Gap 10 mmol/L BUN 9 (7-17) mg/dL Creatinine 0.61 (0.52-1.04) mg/dL Est GFR (CKD-EPI)AfAm >90 (>60 ml/min/1.73 sqM) Est GFR (CKD-EPI)NonAf >90 (>60 ml/min/1.73 sqM) Glucose 97 (74-99) mg/dL Calcium 10.1 (8.4-10.2) mg/dL Total Bilirubin 0.2 (0.2-1.3) mg/dL AST 25 (14-36) U/L ALT 20 (4-34) U/L Alkaline Phosphatase 103 (38-126) U/L Total Protein 7.5 (6.3-8.2) g/dL Albumin 4.5 (3.5-5.0) g/dL Coronavirus (PCR) (Not Detectd) 06/18/21 Range/Units 19:39 WBC (3.8-10.6) k/uL RBC (3.80-5.40) m/uL Hgb (11.4-16.0) gm/dL Hct (34.0-46.0) % MCV (80.0-100.0) fL MCH (25.0-35.0) pg MCHC (31.0-37.0) g/dL RDW (11.5-15.5) % Plt Count (150-450) k/uL MPV Neutrophils % % Lymphocytes % % Monocytes % % Eosinophils % % Basophils % % Neutrophils # (1.3-7.7) k/uL Lymphocytes # (1.0-4.8) k/uL Monocytes # (0-1.0) k/uL Eosinophils # (0-0.7) k/uL Basophils # (0-0.2) k/uL D-Dimer (<0.60) mg/L FEU Sodium (137-145) mmol/L Potassium (3.5-5.1) mmol/L Chloride (98-107) mmol/L Carbon Dioxide (22-30) mmol/L Anion Gap mmol/L BUN (7-17) mg/dL Creatinine (0.52-1.04) mg/dL Est GFR (CKD-EPI)AfAm (>60 ml/min/1.73 sqM) Est GFR (CKD-EPI)NonAf (>60 ml/min/1.73 sqM) Glucose (74-99) mg/dL Calcium (8.4-10.2) mg/dL Total Bilirubin (0.2-1.3) mg/dL AST (14-36) U/L ALT (4-34) U/L Alkaline Phosphatase (38-126) U/L Total Protein (6.3-8.2) g/dL Albumin (3.5-5.0) g/dL Coronavirus (PCR) Not Detected (Not Detectd) Disposition Clinical Impression: Pneumonia Disposition: HOME SELF-CARE Condition: Good Instructions (If sedation given, give patient instructions): Pneumonia (ED) Prescriptions: Albuterol Inhaler [Ventolin Hfa Inhaler] 2 puff INHALATION RT-QID #2 puff Azithromycin [Zithromax Tri-Ruben] 500 mg PO DAILY #3 tab Is patient prescribed a controlled substance at d/c from ED?: No Referrals: Alex Samayoa MD [Primary Care Provider] - 1-2 days Time of Disposition: 21:13
[2021-06-18 20:07] LABS: Basophils # (A) 0.1 k/uL (0-0.2); Basophils % (A) 0 %; Eosinophils # (A) 0.2 k/uL (0-0.7); Eosinophils % (A) 1 %; HGB 14.2 gm/dL (11.4-16.0); Lymphocytes # (A) 2.2 k/uL (1.0-4.8); Lymphocytes % (A) 16 %; MCH 28.5 pg (25.0-35.0); MCHC 32.9 g/dL (31.0-37.0); MCV 86.4 fL (80.0-100.0); Mean Platelet Volume 8.1; Monocytes # (A) 0.7 k/uL (0-1.0); Monocytes % (A) 5 %; Neutrophils # (A) 10.6 k/uL (1.3-7.7); Neutrophils % (A) 76 %; Platelet Count 357 k/uL (150-450); RBC 4.98 m/uL (3.80-5.40); RDW 14.3 % (11.5-15.5); WBC 13.9 k/uL (3.8-10.6)
[2021-06-18 20:25] LABS: ALT 20 U/L (4-34); AST 25 U/L (14-36); African American GFR (CKD) >90 (>60 ml/min/1.73 sqM); Albumin 4.5 g/dL (3.5-5.0); Alkaline Phosphatase 103 U/L (38-126); Anion Gap 10 mmol/L; Blood Urea Nitrogen 9 mg/dL (7-17); Calcium 10.1 mg/dL (8.4-10.2); Carbon Dioxide 25 mmol/L (22-30); Chloride 104 mmol/L (98-107); Glucose 97 mg/dL (74-99); Non-African American GFR(CKD) >90 (>60 ml/min/1.73 sqM); Potassium 4.4 mmol/L (3.5-5.1); Sodium 139 mmol/L (137-145); Total Bilirubin 0.2 mg/dL (0.2-1.3); Total Protein 7.5 g/dL (6.3-8.2)
--- NOTE | 2021-06-18 21:04 | XR ---
EXAMINATION TYPE: XR chest 2V DATE OF EXAM: 06/18/2021 COMPARISON: NONE HISTORY: Cough and difficulty breathing. TECHNIQUE: Frontal and lateral views of the chest are obtained. FINDINGS: There is mild bibasilar streaky opacity. No pleural effusion, or pneumothorax seen. The c ardiac silhouette size is within normal limits. The osseous structures are intact. IMPRESSION: Bibasilar atelectasis versus developing infiltrates.
[2021-06-18] MEDS ORDERED: cefTRIAXone IN SWFI 1,000 MG/10 ML SYRINGE IVP STA (21:11)
[2021-06-18 21:37] VITALS: BP 111/66; PULSE 102; RESP 18; TEMP 97.9
== END 2021-06-18 21:38 | disposition home or self-care (01) ==
LOC: EC 18:44
DX: J18.9 Pneumonia, unspecified organism (principal); J45.909 Unspecified asthma, uncomplicated; Z20.822 Contact with and (suspected) exposure to COVID-19
CPT/HCPCS: 36415; 94640; 85379; 80053; 85025; 87635; 71046; 99285; 96374; J0696

== ENCOUNTER 2021-09-26 10:46 | Emergency (ER) | payer OTHER ==
[2021-09-26 10:58] VITALS: RESP 18
[2021-09-26 13:33] LABS: Basophils # (A) 0.1 k/uL (0-0.2); Basophils % (A) 1 %; Eosinophils # (A) 0.2 k/uL (0-0.7); Eosinophils % (A) 2 %; HCT 40.9 % (34.0-46.0); HGB 13.3 gm/dL (11.4-16.0); Lymphocytes # (A) 2.6 k/uL (1.0-4.8); Lymphocytes % (A) 23 %; MCH 27.9 pg (25.0-35.0); MCHC 32.4 g/dL (31.0-37.0); MCV 86.2 fL (80.0-100.0); Mean Platelet Volume 7.6; Monocytes # (A) 0.5 k/uL (0-1.0); Monocytes % (A) 4 %; Neutrophils # (A) 7.8 k/uL (1.3-7.7); Neutrophils % (A) 69 %; Platelet Count 319 k/uL (150-450); RBC 4.75 m/uL (3.80-5.40); RDW 13.8 % (11.5-15.5); WBC 11.3 k/uL (3.8-10.6)
[2021-09-26] MEDS ORDERED: SODIUM CHLORIDE 0.9% 1,000 ML IV STA (13:35)
--- NOTE | 2021-09-26 13:37 | ED ---
General Adult HPI - General Chief complaint: Vaginal Bleeding Stated complaint: Cramps/Vaginal Bleeding Time Seen by Provider: 09/26/21 12:40 Source: patient, RN notes reviewed Mode of arrival: ambulatory Limitations: no limitations - History of Present Illness Initial comments: 26-year-old female presents to the emergency room for a chief complaint of vaginal bleeding. Patient states she had her period 2 weeks ago. However started to have vaginal bleeding 2 days ago. States she has cramping but no significant abdominal pain. Patient states she is using several pads for this bleeding. Patient does admit to chance of . Patient does have an [employer]ENE AND [employer]ING DES[employer]ER from [place]. Denies lightheadedness or dizziness. Patient did not call her [employer]ENE AND [employer]ING DESIGN L[employer]ER because she wasn't sure what to do.Patient has no other complaints at this time including shortness of breath, chest pain, abdominal pain, nausea or vomiting, headache, or visual changes. - Related Data Home Medications Medication Instructions Recorded Confirmed Albuterol Inhaler [Ventolin Hfa 2 puff INHALATION RT-QID PRN 09/26/21 09/26/21 Inhaler] Allergies Allergy/AdvReac Type Severity Reaction Status Date / Time No Known Allergies Allergy Verified 09/26/21 13:20 Review of Systems ROS Statement: Those systems with pertinent positive or pertinent negative responses have been documented in the HPI. ROS Other: All systems not noted in ROS Statement are negative. Past Medical History Past Medical History: Asthma History of Any Multi-Drug Resistant Organisms: None Reported Past Surgical History: No Surgical Hx Reported Past Psychological History: No Psychological Hx Reported, Anxiety, Depression Smoking Status: Never smoker - Past Family History Father Family Medical History: Diabetes Mellitus, Myocardial Infarction ([place]) Mother Family Medical History: No Reported History General Exam Limitations: no limitations General appearance: alert, in no apparent distress Head exam: Present: atraumatic Eye exam: Present: normal appearance, PERRL, EOMI. Absent: scleral icterus, conjunctival injection ENT exam: Present: normal exam, mucous membranes moist Neck exam: Present: normal inspection, full ROM. Absent: tenderness Respiratory exam: Present: normal lung sounds bilaterally. Absent: respiratory distress, wheezes Cardiovascular Exam: Present: regular rate, normal rhythm, normal heart sounds GI/Abdominal exam: Present: soft, normal bowel sounds. Absent: distended, t enderness External exam: Present: normal external exam. Absent: erythema, swelling, lesions, lacerations Speculum exam: Present: vaginal bleeding (Mild vaginal bleeding noted). Absent: erythema, vaginal discharge, cervical discharge, foreign body, tissue, laceration By manual exam: Present: normal by manual exam Course Vital Signs 09/26/21 10:51 Temperature 98.5 F Pulse Rate 92 Respiratory 18 Rate Blood Pressure 96/65 O2 Sat by Pulse 95 Oximetry Medical Decision Making - Medical Decision Making Vitals are stable. Patient is well-appearing. Mild vaginal bleeding on exam. No significant hemorrhage. Hemoglobin is 13.3. Given this has been ongoing for 3 days I would suspect there would be a decrease in her hemoglobin if there was significant bleeding risk. CMP is unremarkable. Urinalysis does show red blood cells however suspect this is related to vaginal bleeding rather than hematuria. No evidence for infection. Patient does have established care with an [employer] DES[employer]ER. At this time patient is stable for outpatient follow-up for dysfunctional uterine bleeding. If she has worsening symptoms she will return to the emergency room. These were discussed and up with her including lightheadedness, syncope, or worsening bleeding. - Lab Data Result diagrams: 09/26/21 13:28 09/26/21 13:28 Lab Results 09/26/21 09/26/21 09/26/21 Range/Units 13:28 13:28 13:28 WBC 11.3 H (3.8-10.6) k/uL RBC 4.75 (3.80-5.40) m/uL Hgb 13.3 (11.4-16.0) gm/dL Hct 40.9 (34.0-46.0) % MCV 86.2 (80.0-100.0) fL MCH 27.9 (25.0-35.0) pg MCHC 32.4 (31.0-37.0) g/dL RDW 13.8 (11.5-15.5) % Plt Count 319 (150-450) k/uL MPV 7.6 Neutrophils % 69 % Lymphocytes % 23 % Monocytes % 4 % Eosinophils % 2 % Basophils % 1 % Neutrophils # 7.8 H (1.3-7.7) k/uL Lymphocytes # 2.6 (1.0-4.8) k/uL Monocytes # 0.5 (0-1.0) k/uL Eosinophils # 0.2 (0-0.7) k/uL Basophils # 0.1 (0-0.2) k/uL Sodium (137-145) mmol/L Potassium (3.5-5.1) mmol/L Chloride (98-107) mmol/L Carbon Dioxide (22-30) mmol/L Anion Gap mmol/L BUN (7-17) mg/dL Creatinine (0.52-1.04) mg/dL Est GFR (CKD-EPI)AfAm (>60 ml/min/1.73 sqM) Est GFR (CKD-EPI)NonAf (>60 ml/min/1.73 sqM) Glucose (74-99) mg/dL Calcium (8.4-10.2) mg/dL Total Bilirubin (0.2-1.3) mg/dL AST (14-36) U/L ALT (4-34) U/L Alkaline Phosphatase (38-126) U/L Total Protein (6.3-8.2) g/dL Albumin (3.5-5.0) g/dL Urine Color Red Urine Appearance Cloudy H (Clear) Urine pH 5.5 (5.0-8.0) Ur Specific [place] 1.024 (1.001-1.035) Urine Protein 1+ H (Negative) Urine Glucose (UA) Negative (Negative) Urine Ketones Trace H (Negative) Urine Blood Large H (Negative) Urine Nitrite Negative (Negative) Urine Bilirubin Negative (Negative) Urine Urobilinogen <2.0 (<2.0) mg/dL Ur Leukocyte Esterase Moderate H (Negative) Urine RBC >182 H (0-5) /hpf Urine WBC 12 H (0-5) /hpf Ur Squamous Epith Cells 2 (0-4) /hpf Urine Mucus Few H (None) /hpf Urine HCG, Qual Not Detected (Not Detectd) 09/26/21 Range/Units 13:28 WBC (3.8-10.6) k/uL RBC (3.80-5.40) m/uL Hgb (11.4-16.0) gm/dL Hct (34.0-46.0) % MCV (80.0-100.0) fL MCH (25.0-35.0) pg MCHC (31.0-37.0) g/dL RDW (11.5-15.5) % Plt Count (150-450) k/uL MPV Neutrophils % % Lymphocytes % % Monocytes % % Eosinophils % % Basophils % % Neutrophils # (1.3-7.7) k/uL Lymphocytes # (1.0-4.8) k/uL Monocytes # (0-1.0) k/uL Eosinophils # (0-0.7) k/uL Basophils # (0-0.2) k/uL Sodium 138 (137-145) mmol/L Potassium 4.0 (3.5-5.1) mmol/L Chloride 106 (98-107) mmol/L Carbon Dioxide 24 (22-30) mmol/L Anion Gap 8 mmol/L BUN 11 (7-17) mg/dL Creatinine 0.67 (0.52-1.04) mg/dL Est GFR (CKD-EPI)AfAm >90 (>60 ml/min/1.73 sqM) Est GFR (CKD-EPI)NonAf >90 (>60 ml/min/1.73 sqM) Glucose 86 (74-99) mg/dL Calcium 9.5 (8.4-10.2) mg/dL Total Bilirubin 0.4 (0.2-1.3) mg/dL AST 29 (14-36) U/L ALT 20 (4-34) U/L Alkaline Phosphatase 102 (38-126) U/L Total Protein 7.2 (6.3-8.2) g/dL Albumin 4.0 (3.5-5.0) g/dL Urine Color Urine Appearance (Clear) Urine pH (5.0-8.0) Ur Specific [place] (1.001-1.035) Urine Protein (Negative) Urine Glucose (UA) (Negative) Urine Ketones (Negative) Urine Blood (Negative) Urine Nitrite (Negative) Urine Bilirubin (Negative) Urine Urobilinogen (<2.0) mg/dL Ur Leukocyte Esterase (Negative) Urine RBC (0-5) /hpf Urine WBC (0-5) /hpf Ur Squamous Epith Cells (0-4) /hpf Urine Mucus (None) /hpf Urine HCG, Qual (Not Detectd) Disposition Clinical Impression: Dysfunctional uterine bleeding Disposition: HOME SELF-CARE Condition: Good Instructions (If sedation given, give patient instructions): Dysfunctional Uterine Bleeding (ED) Additional Instructions: Please follow-up with your doctor in one to 2 days. Return to the emergency room for any worsening symptoms. These could include worsening bleeding, lightheadedness, passing out, or any other concerns. Is patient prescribed a controlled substance at d/c from ED?: No Referrals: Alex Samayoa MD [Primary Care Provider] - 1-2 days Rancho Sanchez DO [REFERRING] - 1-2 days Time of Disposition: 15:10
[2021-09-26 13:42] LABS: Appearance,Urine Cloudy (Clear); Bilirubin,Urine Negative (Negative); Blood,Urine Large (Negative); Color,Urine Red; Glucose,Urine (UA) Negative (Negative); Ketones,Urine Trace (Negative); Leukocyte Esterase,Urine Moderate (Negative); Mucus,Urine Few /hpf; Nitrite,Urine Negative (Negative); PH, Urine 5.5 (5.0-8.0); Protein,Urine 1+ (Negative); RBC,Urine >182 /hpf (0-5); Specific Gravity,Urine 1.024 (1.001-1.035); Squamous Epithelial Cell,Urine 2 /hpf (0-4); Urobilinogen,Urine <2.0 mg/dL (<2.0); WBC,Urine 12 /hpf (0-5)
[2021-09-26 13:53] LABS: ALT 20 U/L (4-34); AST 29 U/L (14-36); African American GFR (CKD) >90 (>60 ml/min/1.73 sqM); Alkaline Phosphatase 102 U/L (38-126); Anion Gap 8 mmol/L; Blood Urea Nitrogen 11 mg/dL (7-17); Calcium 9.5 mg/dL (8.4-10.2); Carbon Dioxide 24 mmol/L (22-30); Chloride 106 mmol/L (98-107); Glucose 86 mg/dL (74-99); Non-African American GFR(CKD) >90 (>60 ml/min/1.73 sqM); Sodium 138 mmol/L (137-145); Total Bilirubin 0.4 mg/dL (0.2-1.3); Total Protein 7.2 g/dL (6.3-8.2)
[2021-09-26 16:00] VITALS: BP 132/78; PULSE 80; TEMP 98
[2021-09-30 14:03] LABS: C. trachomatis,PCR Equivocal (Neg,Equiv); Chlamydia trachomatis Source Urine; N. gonorrhoeae,PCR Equivocal (Neg,Equiv); Neisseria Source Urine
== END 2021-09-26 16:00 | disposition home or self-care (01) ==
LOC: EC 10:46
DX: N93.8 Other specified abnormal uterine and vaginal bleeding (principal); J45.909 Unspecified asthma, uncomplicated; F41.9 Anxiety disorder, unspecified; F32.A Depression, unspecified
CPT/HCPCS: 36415; 80053; 81001; 81025; 85025; 87086; 87491; 87591; 99284

== ENCOUNTER 2021-10-17 05:01 | Emergency (ER) | payer OTHER ==
[2021-10-17] MEDS ORDERED: ACETAMINOPHEN TAB 500 MG TAB PO STA (05:14)
[2021-10-17] MEDS ORDERED: IBUPROFEN 600 MG TAB PO STA (05:14)
--- NOTE | 2021-10-17 06:02 | XR ---
EXAM: XR Chest, 2 Views CLINICAL HISTORY: ITS.REASON XR Reason: COUGH TECHNIQUE: Frontal and lateral views of the chest. COMPARISON: No relevant prior studies available. FINDINGS: Lungs: Mild peribronchial thickening in the left lower lobe. Pleural space: Unremarkable. No pneumothorax. Heart: Unremarkable. No cardiomegaly. Mediastinum: Unremarkable. Bones/joints: Unremarkable. IMPRESSION: Mild peribronchial thickening in the left lower lobe. This could reflect acute bronchiolitis in the appropriate clinical context.
[2021-10-17] MEDS ORDERED: DEXAMETHASONE SOD PHOSPHATE 10 MG/ML 1 ML VIAL IVP STA (07:16)
[2021-10-17] MEDS ORDERED: SODIUM CHLORIDE 0.9% 50 ML IVPB ONE (08:00)
[2021-10-17] MEDS ORDERED: CASIRIVIMAB (REGN10933) (EUA) 600 MG, IMDEVIMAB (REGN10987) (EUA) 600 MG in SODIUM CHLO... IVPB ONE (08:15)
--- NOTE | 2021-10-17 08:43 | ED ---
URI HPI - General Chief Complaint: Upper Respiratory Infection Stated Complaint: not feeling well Time Seen by Provider: 10/17/21 07:15 Source: patient, RN notes reviewed Mode of arrival: ambulatory Limitations: no limitations - History of Present Illness Initial Comments: Patient is a 26-year-old female that presents to the emergency department complaining of a cough and upper respiratory tract symptoms for the past several days. She notes she can emergency room to get tested for Covid. Patient was otherwise well-appearing in no apparent distress. She denied any other issues or complaints. She denied any chest pain shortness of breath headache nausea vomiting diarrhea constipation fatigue chills. Quality: tingling - Related Data Home Medications Medication Instructions Recorded Confirmed Albuterol Inhaler [Ventolin Hfa 2 puff INHALATION RT-QID PRN 09/26/21 10/17/21 Inhaler] Acetaminophen [Tylenol] 650 mg PO Q4H PRN 10/17/21 10/17/21 Allergies Allergy/AdvReac Type Severity Reaction Status Date / Time No Known Allergies Allergy Verified 10/17/21 08:14 Review of Systems ROS Statement: Those systems with pertinent positive or pertinent negative responses have been documented in the HPI. ROS Other: All systems not noted in ROS Statement are negative. Past Medical History Past Medical History: Asthma History of Any Multi-Drug Resistant Organisms: None Reported Past Surgical History: No Surgical Hx Reported Past Psychological History: No Psychological Hx Reported, Anxiety, Depression Smoking Status: Never smoker Past Alcohol Use History: None Reported Past Drug Use History: None Reported - Past Family History Father Family Medical History: Diabetes Mellitus, Myocardial Infarction ([place]) Mother Family Medical History: No Reported History General Exam Limitations: no limitations General appearance: alert, in no apparent distress, obese (Morbidly) Head exam: Present: atraumatic, normocephalic, normal inspection Eye exam: Present: normal appearance, PERRL, EOMI. Absent: scleral icterus, conjunctival injection, periorbital swelling ENT exam: Present: normal exam, mucous membranes moist Neck exam: Present: normal inspection Respiratory exam: Present: normal lung sounds bilaterally. Absent: respiratory distress, wheezes, rales, rhonchi, stridor Cardiovascular Exam: Present: regular rate, normal rhythm, normal heart sounds. Absent: systolic murmur, diastolic murmur, rubs, gallop, clicks GI/Abdominal exam: Present: soft, normal bowel sounds. Absent: distended, tenderness, guarding, rebound, rigid Extremities exam: Present: normal inspection, full ROM, normal capillary refill. Absent: tenderness, pedal edema, joint swelling, calf tenderness Neurological exam: Present: alert, oriented X3 Psychiatric exam: Present: normal affect, normal mood Skin exam: Present: warm, dry, intact, normal color. Absent: rash Course Vital Signs 10/17/21 10/17/21 05:12 07:34 Temperature 101.1 F H 98.7 F Pulse Rate 118 H 102 H Respiratory 20 18 Rate Blood Pressure 111/65 116/79 O2 Sat by Pulse 96 98 Oximetry Medical Decision Making - Medical Decision Making 26 she'll female with a cough for the past several days. Covid test, chest x-ray, 600 mg of Motrin, 650 mg of Tylenol, 10 mg of Decadron ordered. Covid test positive. Patient does meet criteria for monoclonal antibodies and wishes to undergo infusion. chest x-ray shows Peribronchial cuffing in the left lower lobe Patient is we will discharge home after infusion. Case discussed with Dr. Pryor, patient discharge home. - Lab Data Lab Results 10/17/21 Range/Units 05:12 Coronavirus (PCR) Detected A (Not Detectd) - Radiology Data Radiology results: report reviewed, image reviewed Chest x-ray: Mild peribronchial thickening in the left lower lobe. This could reflect acute bronchiolitis in the appropriate clinical contacts. Disposition Clinical Impression: COVID, Fever Disposition: HOME SELF-CARE Condition: Stable Instructions (If sedation given, give patient instructions): Coronavirus Disease 2019 (COVID-19) Additional Instructions: Please return to the Emergency Department if symptoms worsen or any other concerns. Is patient prescribed a controlled substance at d/c from ED?: No Referrals: Alex Samayoa MD [Primary Care Provider] - 1-2 days Time of Disposition: 08:42
[2021-10-17 09:54] VITALS: BP 106/71; PULSE 93; RESP 16; TEMP 97.7
== END 2021-10-17 09:52 | disposition home or self-care (01) ==
LOC: EC 05:01
DX: U07.1 COVID-19 (principal); J45.909 Unspecified asthma, uncomplicated; Z79.51 Long term (current) use of inhaled steroids
CPT/HCPCS: 87635; 71046; 99284; 96374; J1100; Q0244